=== PATIENT | male | born 1995 | race Caucasian/White ===

== ENCOUNTER 2025-03-25 10:58 | Observation (INO) | payer OTHER, SELFPAY ==
[2025-03-25] VITALS (9 sets, daily range): BP systolic 90–118; BP diastolic 56–77; PULSE 81–109; RESP 16–20; TEMP 36.5–36.7; O2SAT 97–100; BMI 26.9
--- NOTE | ~2025-03-25 | CT_ITS ---
CLINICAL INDICATION: Upper abdominal pain and bloody stool COMPARISON: . TECHNIQUE: Multiple contiguous axial images of the abdomen and pelvis were performed following the ad ministration of with 100 mL Omnipaque-350 intravenous contrast The dose-length product (DLP) was 460.02 mGy-cm. Automated exposure control and iterative reconstruction technique were employed. FINDINGS/OBSERVATIONS: Visualized lower thorax: The bilateral lung bases are clear. The heart is of normal size, without pericardial effusion. Liver: The liver demonstrates homogeneous enhancement and is not enlarged. Gallbladder and biliary system: The gallbladder is only minimally distended, and otherwise unremarkable. Pancreas: The pancreas enhances homogeneously without ductal dilatation. Spleen: The spleen enhances homogeneously and is not enlarged. Kidneys: 7 mm nonobstructing stone within the interpolar region of the right kidney The remainder of the bilateral kidneys otherwise enhance symmetrically without hydronephrosis or kailyn tional renal calculi. Adrenal glands: Unremarkable. Gastrointestinal tract: Rectosigmoid diverticulosis without surrounding inflammatory change. Fecal stasis within the colon. Appendix: The air-filled appendix is of normal caliber (axial series, images 78 through 106). Vasculature: Unremarkable. Lymph nodes: No pathologically enlarged or morphologically suspicious lymph nodes within the retroperitoneum or at the root of the mesentery. Pelvic structures: The bladder is only minimally distended, and otherwise unremarkable. The prostate gland is within the upper limits of normal for size for a patient of this age. Body wall and musculoskeletal: No significant degenerative disease within the lower thoracic or lumbosacral spine. IMPRESSION: 7 mm nonobstructing right renal stone. Rectosigmoid diverticulosis without surrounding inflammatory change. Reviewed, dictated and finalized at location A.
--- OUTSIDE RECORDS SUMMARY | 2025-03-25 11:00 | XMS_ITS | Clinical Summary ---
Author Organization [facility] Address [address] [place] [address] Care Team Providers Care Blocking Machine Operator Name Role Phone Toni Francisco MD Primary Care Provide r Allergies No known active allergies Medications No known medications Medical History Medical History Date Comments Adhd Migraines Social History Tobacco Use Types Packs/Day Years Used Date Smoking Tobacco: Some Days Cigarettes 0.5 2 Tobacco Cessation:Ready to Q uit: Not Asked; Counseling Given: Not Answered Personal Safety Answer Date Recorded Have you ever been in or are you currently in a harmful physical or emotional relationship or is someone making you feel afraid or unsafe? Denies 04/24/2024 Sex and Gender Information Value Date Recorded Sex Assigned at Not on file Legal Sex Male 4:12 PM CDT Gender Identity Not on file Sexual Orientation Not on file Obstetrics History Last Filed Vital Signs Vital Sign Reading Time Taken Comments Blood Pressure 123/85 04/24/2024 7:15 PM CDT Pulse 93 04/24/2024 7:15 PM CDT Temperature 36.9 C (98.5 F) 04/24/2024 4:17 PM CDT Respiratory Rate 26 04/24/2024 7:15 PM CDT Oxygen Saturation 97% 04/24/2024 7:15 PM CDT Inhaled Oxygen Concentration - - Weight 80.3 kg (177 lb) 04/24/2024 4:17 PM CDT Height 177.8 cm (5' 10) 04/24/2024 4:17 PM CDT Body Mass Index 25.4 04/24/2024 4:17 PM CDT Plan of Treatment Health Maintenance Due Date Last Done Comments Depression Screening 1995 Hepatitis C Screening 1995 Hepatitis B Screening 2013 Regular Well Visit/Exam 18-64 2013 Varicella Vaccines (1 of 2 - 13+ 2-dose series) 07/15/2013 Pneumococcal vaccine <65 (2 of 2 - PCV) 02/08/2015 02/08/2014 DTaP/Tdap/Td Vaccine (2 - Td or Tdap) 02/18/2023 02/18/2013 Influenza Vaccine (Season Ended) 2025 08/17/2017, 07/03/2016, 06/27/2015, Additional history exists HPV Vaccines Aged Out No longer eligi ble based on patient's age to complete this topic Insurance [facility] Care Teams Blocking Machine Operator Relationship Specialty Start Date End Date Toni Francisco MD [address] [place] [address] PCP - General Emergency Medicine 04/24/24
--- OUTSIDE RECORDS SUMMARY | 2025-03-25 11:00 | XMS_ITS | Referral Summary ---
Author Organization [facility] Address [address] [place] [address] Care Team Providers Care At Risk Specialist Name Role Phone Toni Francisco MD Primary Care Provide r Allergies No known active allergies Medications No known medications Social History Tobacco Use Types Packs/Day Years [...] on file Sexual Orientation Not on file Last Filed Vital Signs Vital Sign Reading [...] 04/24/2024 4:17 PM CDT Plan of Treatment Not on file Insurance [employer] Care Teams At Risk Specialist Relationship Specialty Start Date End Date Toni Francisco MD [address] [place] [address] PCP - General Emergency Medicine 04/24/24
--- OUTSIDE RECORDS SUMMARY | 2025-03-25 11:00 | XMS_ITS | Continuity of Care Document ---
Author Name [facility] Organization [facility] Care Team Providers Care Surveillance Inspector Name Role Phone [facility] Unavailable Unavailable Problems Combined list of problems from Department of Defense and Veterans Affairs facilities. It does not include entries that were removed or entered in error. Problem Status Onset Date Problem Type Date of Resolution Comments Source Attention deficit hyperactivity disorder Active Condition [facility] Depression Active Condition [facility] Diagnosis: ICD-10-CM F43.12 Post-traumatic stress disorder, chronic Active Diagnosis [facility] Diagnosis: ICD-10-CM F32.A Depression, unspecified Active Diagnosis [facility] Results Combined list of recent chemistry, hematology and other laboratory results from Department of [facility] and Veterans Affairs, ranging from 15 months to all on record, depending upon the facility. Order Name Results Value Reference Range Date Interpretation Specimen Comments Source LIPID PANEL (STL) CHOLESTERO L [MASS/VOLU ME] IN SERUM OR PLASMA 208 mg/dL 0 - 200 01/26 H Specimen Type: PLASMA Comment: No hemolysis noted. Ordering Provider: JEANNA PADGETT Report Released Date/Time: January 26, 2025 08:49 AM Reporting Lab: [facility] [address] [place] [phone] Performing Lab: [address] [address] [facility] LIPID PANEL (STL) TRIGLYCERI DE [MASS/VOLU ME] IN SERUM OR PLASMA 126 mg/dL 0 - 150 01/26 Specimen Type: PLASMA Comment: No hemolysis noted. Ordering Provider: JEANNA PADGETT Report Released Date/Time: January 26, 2025 08:49 AM Reporting Lab: [address] [phone] Performing Lab: [address] [address] [facility] LIPID PANEL (STL) CHOLESTERO L IN LDL [MASS/VOLU ME] IN SERUM OR PLASMA BY ALEN Cartwright 131 mg/dL 01/26 Specimen Type: PLASMA Comment: No hemolysis noted. Ordering Provider: JEANNA PADGETT Report Released Date/Time: January 26, 2025 08:49 AM Reporting Lab: [place] [address] Performing Lab: [address] LIPID PANEL (STL) CHOLESTERO L IN HDL [MASS/VOLU ME] IN SERUM OR PLASMA 52 mg/dL 40 01/26 Specimen Type: PLASMA Comment: No hemolysis noted. Ordering Provider: JEANNA PADGETT Report Released Date/Time: January 26, 2025 08:49 AM Reporting Lab: [place] [phone] Performing Lab: [address] PROST. SPECIFIC AG.(PB-S TL) PROSTATE SPECIFIC AG [MASS/VOLU ME] IN SERUM OR PLASMA 1.148 ng/mL 0 - 4 01/26 Specimen Type: SERUM Comment: The listed sex of this patient may not be a typical indication for this test. Therefore, reference ranges or interpretiv e criteria listed may not be valid. Clinical correlation suggested. Ordering Provider: JEANNA PADGETT Report Released Date/Time: January 26, 2025 08:49 AM Reporting Lab: [place] [phone] Performing Lab: [address] TSH W/ REFLEX FT4 (STL) THYROTROPI N [UNITS/VOL UME] IN SERUM OR PLASMA 0.381 u[IU]/mL 0.47 - 5 01/26 L Specimen Type: PLASMA No comment entered. Ordering Provider: JEANNA PADGETT Report Released Date/Time: January 26, 2025 08:49 AM Reporting Lab: [facility] [address] [facility] [address] Performing Lab: [facility] [address] [place] [phone] [place] [address] TSH W/ REFLEX FT4 (STL) FREE T4(REFLEX) 1.05 ng/mL 0.7 - 1.48 01/26 Specimen Type: PLASMA No comment entered. Ordering Provider: JEANNA PADGETT Report Released Date/Time: January 26, 2025 08:49 AM Reporting Lab: [facility] [address] [place] [phone] Performing Lab: [address] [phone] [place] [address] COMPREHE NSIVE METABOLI C PANEL CREATININE [MASS/VOLU ME] IN SERUM OR PLASMA 0.74 mg/dL 0.7 - 1.3 01/26 Specimen Type: PLASMA Comment: No hemolysis noted. Ordering Provider: JEANNA PADGETT Report Released Date/Time: January 26, 2025 08:49 AM Reporting Lab: [address] [address] Performing Lab: [address] [phone] [place] [address] COMPREHE NSIVE METABOLI C PANEL UREA NITROGEN [MASS/VOLU ME] IN SERUM OR PLASMA 9.3 mg/dL 9.0 - 25.0 01/26 Specimen Type: PLASMA Comment: No hemolysis noted. Ordering Provider: JEANNA PADGETT Report Released Date/Time: January 26, 2025 08:49 AM Reporting Lab: [address] [address] Performing Lab: [address] [address] [facility] COMPREHE NSIVE METABOLI C PANEL GLUCOSE [MASS/VOLU ME] IN SERUM OR PLASMA 82 mg/dL 72 - 99 01/26 Specimen Type: PLASMA Comment: No hemolysis noted. Ordering Provider: JEANNA PADGETT Report Released Date/Time: January 26, 2025 08:49 AM Reporting Lab: [facility] [address] [facility] [address] Performing Lab: [facility] [address] [facility] [address] [facility] COMPREHE NSIVE METABOLI C PANEL SODIUM [MOLES/VOL UME] IN SERUM OR PLASMA 138 meq/L 136 - 145 01/26 Specimen Type: PLASMA Comment: No hemolysis noted. Ordering Provider: JEANNA PADGETT Report Released Date/Time: January 26, 2025 08:49 AM Reporting Lab: [facility] [address] [facility] [address] Performing Lab: [facility] [address] [facility] [phone] [place] [address] COMPREHE NSIVE METABOLI C PANEL POTASSIUM [MOLES/VOL UME] IN SERUM OR PLASMA 4.2 meq/L 3.5 - 5 01/26 Specimen Type: PLASMA Comment: No hemolysis noted. Ordering Provider: JEANNA PADGETT Report Released Date/Time: January 26, 2025 08:49 AM Reporting Lab: [facility] [address] [facility] [address] Performing Lab: [facility] [address] [facility] [address] [facility] COMPREHE NSIVE METABOLI C PANEL CHLORIDE [MOLES/VOL UME] IN SERUM OR PLASMA 105 meq/L 98 - 107 01/26 Specimen Type: PLASMA Comment: No hemolysis noted. Ordering Provider: JEANNA PADGETT Report Released Date/Time: January 26, 2025 08:49 AM Reporting Lab: [facility] [address] [facility] [address] Performing Lab: [facility] [address] [facility] [address] [facility] COMPREHE NSIVE METABOLI C PANEL CARBON DIOXIDE, TOTAL [MOLES/VOL UME] IN SERUM OR PLASMA 26 meq/L 22 - 31 01/26 Specimen Type: PLASMA Comment: No hemolysis noted. Ordering Provider: JEANNA PADGETT Report Released Date/Time: January 26, 2025 08:49 AM Reporting Lab: [facility] [address] [facility] [address] Performing Lab: [facility] [address] [facility] [address] [facility] COMPREHE NSIVE METABOLI C PANEL CALCIUM [MASS/VOLU ME] IN SERUM OR PLASMA 9.5 mg/dL 8.4 - 10.4 01/26 Specimen Type: PLASMA Comment: No hemolysis noted. Ordering Provider: EJANNA PADGETT Report Released Date/Time: January 26, 2025 08:49 AM Reporting Lab: [address] [address] Performing Lab: [address] [address] [facility] COMPREHE NSIVE METABOLI C PANEL PROTEIN [MASS/VOLU ME] IN SERUM OR PLASMA 7.7 g/dL 6 - 8.6 01/26 Specimen Type: PLASMA Comment: No hemolysis noted. Ordering Provider: JEANNA PADGETT Report Released Date/Time: January 26, 2025 08:49 AM Reporting Lab: [address] [address] Performing Lab: [facility] [address] [facility] [address] [facility] COMPREHE NSIVE METABOLI C PANEL ALBUMIN [MASS/VOLU ME] IN SERUM OR PLASMA 4.6 g/dL 3.4 - 5 01/26 Specimen Type: PLASMA Comment: No hemolysis noted. Ordering Provider: JEANNA PADGETT Report Released Date/Time: January 26, 2025 08:49 AM Reporting Lab: [facility] [address] [facility] [address] Performing Lab: [facility] [address] [facility] [address] [facility] COMPREHE NSIVE METABOLI C PANEL BILIRUBIN. TOTAL [MASS/VOLU ME] IN SERUM OR PLASMA 0.3 mg/dL 0.2 - 1.2 01/26 Specimen Type: PLASMA Comment: No hemolysis noted. Ordering Provider: JEANNA PADGETT Report Released Date/Time: January 26, 2025 08:49 AM Reporting Lab: [facility] [address] [facility] [address] Performing Lab: [facility] [address] [facility] [phone] COMPREHE NSIVE METABOLI C PANEL ALKALINE PHOSPHATAS E [ENZYMATIC ACTIVITY/V OLUME] IN SERUM OR PLASMA 91 U/L 40 - 150 01/26 Specimen Type: PLASMA Comment: No hemolysis noted. Ordering Provider: JEANNA PADGETT Report Released Date/Time: January 26, 2025 08:49 AM Reporting Lab: [facility] [address] [facility] [address] Performing Lab: [facility] [address] [facility] [phone] [place] [address] COMPREHE NSIVE METABOLI C PANEL ASPARTATE AMINOTRANS FERASE [ENZYMATIC ACTIVITY/V OLUME] IN SERUM OR PLASMA 33 U/L 5 - 34 01/26 Specimen Type: PLASMA Comment: No hemolysis noted. Ordering Provider: JEANNA PADGETT Report Released Date/Time: January 26, 2025 08:49 AM Reporting Lab: [facility] [address] [facility] [address] Performing Lab: [facility] [address] [facility] [address] [facility] COMPREHE NSIVE METABOLI C PANEL ALANINE AMINOTRANS FERASE [ENZYMATIC ACTIVITY/V OLUME] IN SERUM OR PLASMA 32 U/L 8 - 40 01/26 Specimen Type: PLASMA Comment: No hemolysis noted. Ordering Provider: JEANNA PADGETT Report Released Date/Time: January 26, 2025 08:49 AM Reporting Lab: [facility] [address] [facility] [address] Performing Lab: [facility] [address] [facility] [phone] [place] [address] COMPREHE NSIVE METABOLI C PANEL GLOMERULAR FILTRATION RATE/1.73 SQ M.PREDICTE D [VOLUME RATE/AREA] IN SERUM, PLASMA OR BLOOD BY CREATININE -BASED FORMULA (CKD-EPI 2020) 125.8 60 01/26 Specimen Type: PLASMA Comment: No hemolysis noted. Ordering Provider: JEANNA PADGETT Report Released Date/Time: January 26, 2025 08:49 AM Reporting Lab: [facility] [address] [place] [address] Performing Lab: [place] [phone] [place] [address] HGA1C HEMOGLOBIN A1C/HEMOGL OBIN.TOTAL IN BLOOD 5.4 4.0 - 6.0 01/26 Specimen Type: BLOOD No comment entered. Ordering Provider: JEANNA PADGETT Report Released Date/Time: January 26, 2025 08:49 AM Reporting Lab: [facility] [address] [place] [phone] Performing Lab: [address] [address] [place] [address] HIV COMBO FOURTH GENERATI ON (STL) HIV 1+2 AB+HIV1 P24 AG [PRESENCE] IN SERUM OR PLASMA BY IMMUNOASSA Y Nonreact lulu 01/26 Specimen Type: SERUM No comment entered. Ordering Provider: JEANNA PADGETT Report Released Date/Time: January 26, 2025 10:00 AM Reporting Lab: [facility] [address] [place] [phone] Performing Lab: [facility] [address] [place] [phone] [facility] HEP C Ab HCV Ab (STL) HEPATITIS C VIRUS AB [PRESENCE] IN SERUM Nonreact lulu 01/26 Specimen Type: SERUM Comment: The listed sex of this patient may not be a typical indication for this test. Therefore, reference ranges or interpretiv e criteria listed may not be valid. Clinical correlation suggested. Ordering Provider: JEANNA PADGETT Report Released Date/Time: January 26, 2025 10:00 AM Reporting Lab: [address] [address] Performing Lab: [address] [address] [facility] CBC LEUKOCYTES [#/VOLUME] IN BLOOD BY AUTOMATED COUNT 8.6 10*3/uL 3.6 - 11.2 01/26 Specimen Type: BLOOD No comment entered. Ordering Provider: JEANNA PADGETT Report Released Date/Time: January 26, 2025 10:01 AM Reporting Lab: [address] [address] Performing Lab: [address] [phone] [place] [address] CBC ERYTHROCYT ES [#/VOLUME] IN BLOOD BY AUTOMATED COUNT 4.67 10*6/uL 4.10 - 5.70 01/26 Specimen Type: BLOOD No comment entered. Ordering Provider: JEANNA PADGETT Report Released Date/Time: January 26, 2025 10:01 AM Reporting Lab: [address] [address] Performing Lab: [address] [phone] [place] [address] CBC HEMOGLOBIN [MASS/VOLU ME] IN BLOOD 13.9 g/dL 13.1 - 16.8 01/26 Specimen Type: BLOOD No comment entered. Ordering Provider: JEANNA PADGETT Report Released Date/Time: January 26, 2025 10:01 AM Reporting Lab: [address] [address] Performing Lab: [address] [phone] [place] [address] CBC HEMATOCRIT [VOLUME FRACTION] OF BLOOD 41.6 38.2 - 48.4 01/26 Specimen Type: BLOOD No comment entered. Ordering Provider: JEANNA PADGETT Report Released Date/Time: January 26, 2025 10:01 AM Reporting Lab: [address] [address] Performing Lab: [address] [phone] [place] [address] CBC MCV [ENTITIC VOLUME] BY AUTOMATED COUNT 89.1 fL 80.0 - 100.0 01/26 Specimen Type: BLOOD No comment entered. Ordering Provider: JEANNA PADGETT Report Released Date/Time: January 26, 2025 10:01 AM Reporting Lab: [place] [phone] Performing Lab: [address] [phone] CBC MCH [ENTITIC MASS] BY AUTOMATED COUNT 29.8 pg 27.0 - 34.0 01/26 Specimen Type: BLOOD No comment entered. Ordering Provider: JEANNA PADGETT Report Released Date/Time: January 26, 2025 10:01 AM Reporting Lab: [address] [address] Performing Lab: [address] [phone] [place] [address] CBC MCHC [MASS/VOLU ME] BY AUTOMATED COUNT 33.4 g/dL 33.0 - 36.0 01/26 Specimen Type: BLOOD No comment entered. Ordering Provider: JEANNA PADGETT Report Released Date/Time: January 26, 2025 10:01 AM Reporting Lab: [address] [address] Performing Lab: [address] [phone] [place] [address] CBC PLATELETS [#/VOLUME] IN BLOOD BY AUTOMATED COUNT 300 10*3/uL 150 - 400 01/26 Specimen Type: BLOOD No comment entered. Ordering Provider: JEANNA PADGETT Report Released Date/Time: January 26, 2025 10:01 AM Reporting Lab: [facility] [address] [facility] [address] Performing Lab: [facility] [address] [place] [phone] [facility] CBC PLATELET MEAN VOLUME [ENTITIC VOLUME] IN BLOOD BY AUTOMATED COUNT 9.7 fL 7.5 - 11.2 01/26 Specimen Type: BLOOD No comment entered. Ordering Provider: JEANNA PADGETT Report Released Date/Time: January 26, 2025 10:01 AM Reporting Lab: [facility] [address] [place] [phone] Performing Lab: [address] [phone] [place] [address] CBC ERYTHROCYT E DISTRIBUTI ON WIDTH [RATIO] BY AUTOMATED COUNT 12.3 11.8 - 15.1 01/26 Specimen Type: BLOOD No comment entered. Ordering Provider: JEANNA PADGETT Report Released Date/Time: January 26, 2025 10:01 AM Reporting Lab: [facility] [address] [place] [phone] Performing Lab: [facility] [address] [place] [phone] [facility] CBC LYMPHOCYTE S/100 LEUKOCYTES IN BLOOD BY AUTOMATED COUNT 23 01/26 Specimen Type: BLOOD No comment entered. Ordering Provider: JEANNA PADGETT Report Released Date/Time: January 26, 2025 10:01 AM Reporting Lab: [facility] [address] [place] [phone] Performing Lab: [facility] [address] [place] [phone] [facility] CBC MONOCYTES/ 100 LEUKOCYTES IN BLOOD BY AUTOMATED COUNT 8 01/26 Specimen Type: BLOOD No comment entered. Ordering Provider: JEANNA PADGETT Report Released Date/Time: January 26, 2025 10:01 AM Reporting Lab: [facility] [address] [facility] [address] Performing Lab: [facility] [address] [facility] [address] [facility] CBC NEUTROPHIL S/100 LEUKOCYTES IN BLOOD BY AUTOMATED COUNT 65 01/26 Specimen Type: BLOOD No comment entered. Ordering Provider: JEANNA PADGETT Report Released Date/Time: January 26, 2025 10:01 AM Reporting Lab: [facility] [address] [facility] [address] Performing Lab: [place] [address] [facility] [address] [facility] CBC EOSINOPHIL S/100 LEUKOCYTES IN BLOOD BY AUTOMATED COUNT 3 01/26 Specimen Type: BLOOD No comment entered. Ordering Provider: JEANNA PADGETT Report Released Date/Time: January 26, 2025 10:01 AM Reporting Lab: [facility] [address] [facility] [address] Performing Lab: [place] [address] [facility] [address] [facility] CBC BASOPHILS/ 100 LEUKOCYTES IN BLOOD BY AUTOMATED COUNT 1 01/26 Specimen Type: BLOOD No comment entered. Ordering Provider: JEANNA PADGETT Report Released Date/Time: January 26, 2025 10:01 AM Reporting Lab: [facility] [address] Performing Lab: [facility] [address] [facility] [address] [facility] CBC LYMPHOCYTE S [#/VOLUME] IN BLOOD BY AUTOMATED COUNT 1.99 10*3/uL 0.77 - 4.50 01/26 Specimen Type: BLOOD No comment entered. Ordering Provider: JEANNA PADGETT Report Released Date/Time: January 26, 2025 10:01 AM Reporting Lab: [facility] [address] [facility] [address] Performing Lab: [facility] [address] [place] [phone] [facility] CBC MONOCYTES [#/VOLUME] IN BLOOD BY AUTOMATED COUNT 0.65 10*3/uL 0.19 - 0.80 01/26 Specimen Type: BLOOD No comment entered. Ordering Provider: JEANNA PADGETT Report Released Date/Time: January 26, 2025 10:01 AM Reporting Lab: [place] [phone] Performing Lab: [place] [phone] CBC NEUTROPHIL S [#/VOLUME] IN BLOOD BY AUTOMATED COUNT 5.58 10*3/uL 2.10 - 8.00 01/26 Specimen Type: BLOOD No comment entered. Ordering Provider: JEANNA PADGETT Report Released Date/Time: January 26, 2025 10:01 AM Reporting Lab: [place] [address] Performing Lab: [place] [phone] CBC EOSINOPHIL S [#/VOLUME] IN BLOOD BY AUTOMATED COUNT 0.26 10*3/uL 0.00 - 0.60 01/26 Specimen Type: BLOOD No comment entered. Ordering Provider: JEANNA PADGETT Report Released Date/Time: January 26, 2025 10:01 AM Reporting Lab: [place] [phone] Performing Lab: [place] [phone] CBC BASOPHILS [#/VOLUME] IN BLOOD BY AUTOMATED COUNT 0.09 10*3/uL 0.00 - 0.20 01/26 Specimen Type: BLOOD No comment entered. Ordering Provider: JEANNA PADGETT Report Released Date/Time: January 26, 2025 10:01 AM Reporting Lab: [place] [phone] Performing Lab: [address] [facility] [address] [facility] Vital Signs Combined list of inpatient and outpatient Vital Signs from Department of Defense and Veterans Affairs, ranging from 12 months to all on record, depending upon the facility. Vital Sign Value Date Comments Source SYSTOLIC BLOOD PRESSURE 125 01/27/20 25 08:58:16 [facility] DIASTOLIC BLOOD PRESSURE 82 025 08:58:16 [facility] PULSE OXIMETRY 100 01/26/2025 08:58:16 [facility] WEIGHT 190 01/26/2025 08:58:16 [facility] BMI 27 kg/m2 01/26/2025 08:58:16 [facility] PAIN 0 01/26/2025 08:58:16 [facility] HEIGHT 70 01/26/2025 08:58:16 [facility] TEMPERATURE 98.1 01/26/2025 08:58:16 [facility] PULSE 86 01/26/2025 08:58:16 [facility] RESPIRATION 18 01/26/2025 08:58:16 [facility] Encounters Combined list of: 1) Encounters from Department of Veterans Affairs facilities going backup to the last 18 months, not all [place] inpatient encounters are included; 2) Encounters from the Department of Defense facilities going backup to 280 months. Location Location Details Encounter Type Encounter Number Reason For Visit Attending Provider ADM Date DC Date Status Disposition Source [facility] Outpatient Encounter [id number] 01/03 [facility] OFFICE O/P NEW MOD 45 MIN [id number] Diagnos is: ICD-10- CM F32.A Depress ion, unspeci fiKASANDRA Elise SALENA N 01/26 [facility] PSYTX W PT 30 MINUTES [id number] Diagnos is: ICD-10- CM F43.12 Post-tr aumatic stress disorde r, chronic WIEGMAN,CL HARPREET E 01/26 [facility] Social History Combined list of available smoking, tobacco, and other social history from Department of Defense and Veterans Affairs facilities. Social History Type Response Date Comment Sourc e Tobacco smoking status NHIS VA-TOBACCO USE SOME DAYS CIGARETTES 01/26/2025 [facility] History of tobacco use VA-TOBACCO USE EVERY DAY OTHER TYPE 01/26/2025 [facility] Plan of Care List of future care activities from Department of Veterans Affairs facilities. Additional future care activities may be listed in the Assessment and Plan section. Date/Time Care Activity Care Activity Detail Facili ty 06/26/2025 AMBULATORY - PSYCHIATRY AMBULATORY - PSYC HIATRY [facility]
--- OUTSIDE RECORDS SUMMARY | 2025-03-25 11:00 | XMS_ITS | Encounter Summary ---
Author Name [facility] Address [address] [place] [address] Care Team Providers Care Utility Hand Name Role Phone MABEL PADGETT Primary Care Provider Unavailabl e Selected Encounter This section includes the information on record at [place] for the Encounter. Date/Time Encounter Type Encounter Description Reason Provider Source January 26, 2025 09:00 AM OFFICE O/P NEW MOD 45 MIN PRIMARY CARE/MEDICINE ICD-10-CM F32.A Depression, unspecified MBAEL PADGETT Mario Encounter Template Text not used by [place] Assessments - Encounter Diagnoses This section includes the primary and secondary diagnoses documented for the Encounter. Date/Time Primary/Secondary Diagnosis Diagnosis Name Provider Source January 26, 2025 09:58 AM PRIMARY Depression, unspecified MABEL PADGETT [facility] January 26, 2025 09:58 AM SECONDARY Attention-deficit hyperactivity disorder, unspecified type MABEL PADGETT [facility] Plan of Treatment: Future Appointments (+ 6 months) and Future Tests (+/- 45 days) The Plan of Treatment section includes future care activities for the patient from all [place] treatmentfacilities. This section includes future appointments and future orders which are active, pending or scheduled. Future Appointments This section includes appointments that were scheduled to occur 6 months from the date of the Encounter, up to a maximum of 20 appointments. The data comes from all [place] treatment facilities. Appointment Date/Time Appointment Type Appointme nt Facility Name Jun 26, 2025 03:00 PM AMBULATORY - PSYCHIATRY [facility] Active, Pending, and Scheduled Orders This section includes a listing of several types of active, pending, and scheduled orders, including clinic medications orders, diagnostic test orders, procedure orders and consult orders; where the start date of the order is 45 days before the date of the Encounter or 45 days after the date of theEncounter. The data comes from all [place] treatment facilities. Test Date/Time Test Type Test Details Facility Name January 26, 2025 12:00 AM Laboratory - Chemi stry Order URINALYSIS (STL-PB) URINE [facility] January 26, 2025 12:00 AM Laboratory - Chemi stry Order MICRAL/CREAT PROFILE (STL) URINE [facility] January 26, 2025 01:52 PM Consult Order MENTAL [facility] BHIP OUTPT RAKESH Cons Octave Board Racker's Choice [facility] Lab Results: +/- 30 days of the encounter This section includes the Chemistry and Hematology Lab Results on record with [place] for the patient. Radiology Reports and Pathology Reports are provided separately, in subsequent sections. Lab Results This section contains the Chemistry/Hematology Results that were resulted 30 days before or 30 daysafter the date of the Encounter. Date/Time Source Result Type Result - Unit Interpretation Reference Range Specimen Type Comment January 26, 2025 10:05 AM [facility] LIPID PANEL (STL) PLASMA Specimen Type: PLASMA Comment: No hemolysis noted. Ordering Provider: MABEL PADGETT Report Released Date/Time: January 26, 2025 08:49 AM Reporting Lab: [facility] [address] [place] [phone] Performing Lab: [address] [address] CHOLESTEROL 208 mg/dL H 0-200 TRIGLYCERIDE 126 mg/dL 0-150 CALCULATED LDL 131 mg/dL HDL(New) 52 mg/dL >40 January 26, 2025 10:05 AM [facility] PROST. SPECIFIC AG.(PB-STL) SERUM Specimen Ty pe: SERUM Comment: The listed sex of this patient may not be a typical indication for this test. Therefore, reference ranges or interpretive criteria listed may not be valid. Clinical correlation suggested. Ordering Provider: MABEL PADGETT Report Released Date/Time: January 26, 2025 08:49 AM Reporting Lab: [place] [id number] [facility] [phone] Performing Lab: [place] [phone] PROST. SPECIFIC AG.(PB-STL) 1.148 ng/mL 0-4 January 26, 2025 10:05 AM [facility] TSH W/ REFLEX FT4 (STL) PLASMA Specimen Type: PLASMA No comment entered. Ordering Provider: MABEL PADGETT Report Released Date/Time: January 26, 2025 08:49 AM Reporting Lab: [place] [id number] [facility] [phone] Performing Lab: [place] [id number] [facility] [address] TSH 0.381 u[IU]/mL L 0.47-5 FREE T4(REFLEX) 1.05 ng/mL 0.7-1.48 January 26, 2025 10:05 AM [facility] COMPREHENSIVE METABOLIC PANEL PLASMA Specimen Type: PLASMA Comment: No hemolysis noted. Ordering Provider: MABEL PADGETT Report Released Date/Time: January 26, 2025 08:49 AM Reporting Lab: [place] [id number] [facility] [phone] Performing Lab: [place] [address] [facility] [phone] CREATININE 0.74 mg/dL 0.7-1.3 UREA NITROGEN 9.3 mg/dL 9.0-25.0 GLUCOSE 82 mg/dL 72-99 SODIUM 138 meq/L 136-145 POTASSIUM 4.2 meq/L 3.5-5 CHLORIDE 105 meq/L 98-107 CARBON DIOXIDE 26 meq/L 22-31 CALCIUM 9.5 mg/dL 8.4-10.4 PROTEIN 7.7 g/dL 6-8.6 ALBUMIN 4.6 g/dL 3.4-5 TOTAL BILIRUBIN 0.3 mg/dL 0.2-1.2 ALKALINE PHOSPHATASE 91 U/L 40-150 AST/SGOT 33 U/L 5-34 ALT/SGPT 32 U/L 8-40 EGFR (CKD-EPI 2020) 125.8 >60 January 26, 2025 10:05 AM [facility] HGA1C BLOOD Specimen Type: BLOOD No comment entered. Ordering Provider: MABEL PADGETT Report Released Date/Time: January 26, 2025 08:49 AM Reporting Lab: [facility] [address] [facility] [phone] Performing Lab: [facility] [address] [facility] [phone] HGA1C 5.4 4.0-6.0 January 26, 2025 10:05 AM [facility] HIV COMBO FOURTH GENERATION (STL) SERUM Speci men Type: SERUM No comment entered. Ordering Provider: MABEL PADGETT Report Released Date/Time: January 26, 2025 10:00 AM Reporting Lab: [facility] [address] [facility] [phone] Performing Lab: [place] [address] [facility] [phone] HIV COMBO FOURTH GENERATION (STL) Nonreactive Nonreactive January 26, 2025 10:05 AM [facility] HEP C Ab HCV Ab (STL) SERUM Specimen Type: SE RUM Comment: The listed sex of this patient may not be a typical indication for this test. Therefore, reference ranges or interpretive criteria listed may not be valid. Clinical correlation suggested. Ordering Provider: MABEL PADGETT Report Released Date/Time: January 26, 2025 10:00 AM Reporting Lab: [facility] [address] [place] [phone] Performing Lab: [address] [phone] HEP C Ab HCV Ab (L) Nonreactive Nonrea ctive January 26, 2025 10:05 AM [facility] CBC BLOOD Specimen Type: BLOOD No comment entered. Ordering Provider: MABEL PADGETT Report Released Date/Time: January 26, 2025 10:01 AM Reporting Lab: [place] [address] [facility] [phone] Performing Lab: [place] [address] [facility] [phone] WBC 8.6 10*3/uL 3.6-11.2 RBC 4.67 10*6/uL 4.10-5.70 HGB 13.9 g/dL 13.1-16.8 HCT 41.6 38.2-48.4 MCV 89.1 fL 80.0-100.0 MCH 29.8 pg 27.0-34.0 MCHC 33.4 g/dL 33.0-36.0 PLT 300 10*3/uL 150-400 MPV 9.7 fL 7.5-11.2 RDW 12.3 11.8-15.1 LYMPHOCYTES, AUTO % 23 MONOCYTES, AUTO % 8 NEUTROPHILS, AUTO % 65 EOSINOPHILS, AUTO % 3 BASOPHILS, AUTO % 1 LYMPHOCYTES, ABSOLUTE 1.99 10*3/uL 0.77- 4.50 MONOCYTES, ABSOLUTE 0.65 10*3/uL 0.19-0. 80 NEUTROPHILS, ABSOLUTE 5.58 10*3/uL 2.10- 8.00 EOSINOPHILS, ABSOLUTE 0.26 10*3/uL 0.00- 0.60 BASOPHILS, ABSOLUTE 0.09 10*3/uL 0.00-0. 20 Vital Signs: All taken on the encounter date This section contains inpatient and outpatient Vital Signs collected on the date of the Encounter. Date/Time Temperature Pulse Blood Pressure Respiratory Rate SP02 Pain Height Weight Body Mass Index Source January 26, 2025 08:58 AM 98.1 86 125/82 18 100 0 70 190 27 [facility] Social History: Smoking Status (Most current) and Tobacco Use (All prior to encounter date) This section includes the most current, and the historical, smoking and tobacco- related health factors from the [place] facility where the Encounter took place. Current Smoking Status This section includes the most current smoking, or tobacco-related health factor, from the [place] facility where the Encounter took place. Date/Time Current Smoking Status Comment Pranav ity January 26, 2025 09:00 AM VA-TOBACCO USE LIVIA E DAYS CIGARETTES [facility] Tobacco Use History This section includes a history of the smoking, or tobacco-related health factors, that were collected on or before the date of the Encounter. The data comes from the [place] facility where the Encounter took place. 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 Date/Time Encounter Note(s) Provider Source January 27, 2025 10:01 AM PHYSICIAN LETTERS: LOCAL TITLE: TEST RESULT GENERAL LETTER STL STANDARD TITLE: PHYSICIAN LETTERS DATE OF NOTE: JANUARY 27, 2025@10:01 ENTRY DATE: JANUARY 27, 2025@10:01:36 AUTHOR: MABEL PADGETT EXP COSIGNER: URGENCY: STATUS: COMPLETED [facility] [address] [place] [address] JANUARY 27, 2025 RODRÍGUEZ BARKLEY [address] [place], [place] [address] Dear Rodríguez Barkley, I would like to update you on your recent test results. LIPID PROFILE - High cholesterol and triglycerides (lipids) are risk factors for heart disease. Your cholesterol should fall between 140 and 200, and your triglycerides levels should be less than or equal to 150. HDL is the good cholesterol and should ideally be greater than 40. LDL is the bad cholesterol and optimal levels should be less than 100 (near optimal is between 100 and 129). TRIGLYCERIDE 126 mg/dL 01/26/2025 10:05 CHOLESTEROL 208 H mg/dL 01/26/2025 10:05 HDL(New) 52 mg/dL 01/26/2025 10:05 CALCULATED LDL 131 mg/dL 01/26/2025 10:05 No DIRECT LDL EO data found These results are abnormal. your cholesterol levels are borderline high. start low fat diet and regular daily exercise to loose weight. Please call residential interior designer for diet advice at [phone] Please get labs a 1 day or few days before your next appointment HEMOGLOBIN A1C - Gives us information about your diabetes (sugar or glucose) control over the past 3 months. Your target is to keep your A1C below 6 %. HGA1C 5.4 % 01/26/2025 10:05 These readings are within normal limits. CBC - A complete blood count (CBC) gives important information about the kinds and numbers of cells in the blood, especially red blood cells, white blood cells, and platelets. HGB 13.9 g/dL 01/26/2025 10:05 HEMATOCRIT 41.6 % (01/26/25 10:05) PLT 300 10*3/uL 01/26/2025 10:05 WHITE BLOOD COUNT 8.6 10*3/uL (01/26/25 10:05) These readings are within normal limits. CHEM 7 - This is important information about the current status of your kidneys, liver, and electrolyte and acid/base balance as well as of your blood sugar and blood proteins. SODIUM 138 mEq/L 01/26/2025 10:05 POTASSIUM 4.2 mEq/L 01/26/2025 10:05 CHLORIDE 105 mEq/L 01/26/2025 10:05 UREA NITROGEN 9.3 mg/dL 01/26/2025 10:05 CREATININE 0.74 mg/dL 01/26/2025 10:05 CALCIUM 9.5 mg/dL 01/26/2025 10:05 CARBON DIOXIDE 26 mEq/L 01/26/2025 10:05 GLUCOSE 82 mg/dL 01/26/2025 10:05 EGFR (CKD-EPI 2020) 125.8 01/26/2025 10:05 These readings are within normal limits. Hep C - This is important information about your exposure to infectious disease. Infection with hepatitis C can lead to liver damage. Hepatitis C has effective treatment. [facility] Hep C tests in last five years. HEP C Ab HCV Ab ([facility]) Nonreactive S/CO (01/26/25 10:05) The reading for Hep C was negative . LIVER FUNCTION PANEL - These are tests for liver function: PROTEIN 7.7 g/dL 01/26/2025 10:05 ALBUMIN 4.6 g/dL 01/26/2025 10:05 TOTAL BILIRUBIN 0.3 mg/dL 01/26/2025 10:05 ALKALINE PHOSPHATASE 91 U/L 01/26/2025 10:05 AST/SGOT 33 U/L 01/26/2025 10:05 ALT/SGPT 32 U/L 01/26/2025 10:05 These readings are within normal limits. TSH - Thyroid-stimulating hormone (also known as TSH or thyrotropin) is a peptide hormone synthesized and secreted by thyrotrope cells in the anterior pituitary gland, which regulates the endocrine function of the thyroid gland. TSH TSH 0.381 L uIU/mL 01/26/2025 10:05 These readings are within normal limits. Thyroid hormone levels are normal. HIV - Human immunodeficiency virus is a condition in humans in which the immune system begins to fail, leading to life-threatening opportunistic infections. HIV FOURTH GENERATION: Collection DT Specimen Test Name Result Units Ref Range 01/26/2025 10:05 SERUM HIV Combo Nonreactive S/CO Ref: Nonreactive These readings are within normal limits. PLAN Please continue your treatment as above and as we discussed during your visit. If you have any questions please call your case manager specialist. I look forward to seeing you at your next clinic appointment. Thank you for choosing the [facility] for your healthcare. FUTURE APPOINTMENTS: 08/28/2025 11:00 [facility] PACT B4 PCP Sincerely, Mabel Padgett MD. Staff Kurtis. RODRÍGUEZ BARKLEY SUNITA N [facility] January 26, 2025 09:11 AM PRIMARY CARE INITIAL EVALUATION NOTE: LOCAL TITLE: PRIMARY CARE PROVIDER NEW VISIT [facility] STANDARD TITLE: PRIMARY CARE INITIAL EVALUATION NOTE DATE OF NOTE: JANUARY 26, 2025@09:11 ENTRY DATE: JANUARY 26, 2025@09:11:30 AUTHOR: MABEL PADGETT EXP COSIGNER: URGENCY: STATUS: COMPLETED PRIMARY CARE PROVIDER NEW VISIT [facility] Has ADDENDA Patient is 29 and RACE UNKNOWN Self Identified Gender - NONE FOUND Reason for visit:New Patient Chief Complaint: tawnya is here for his new patient appointment History of Present Illness: establishment of care. Tawnya was seeing therapist and private pcp Dr Chaudhry and receiving meds for ADHD. . Dextro amphetamine/Amphetamine 20 mg daily and Amphetamine Resin complex capsule, SA 20 mg daily Problem List: - ADHD - Depression: Family History: no cancer, cad, DM, stroke Social History: uses e cig daily/ smokes a couple cig a week / never really had alcohol / no substance use. 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 NO BRANCH(ES) OF SERVICE: [employer] SPECIFIC YEARS OF SERVICE: LOCATION OF SERVICE: ENVIRONMENTAL EXPOSURE: Medication Review: The essential med list for review which includes the patient's active VA prescriptions and if applicable, remote VA prescriptions, non-VA prescriptions, and discontinued VA prescriptions within the last 90 days and known allergies including local and remote allergies have been reviewed. Allergies:Patient has answered NKA Active and Recently Outpatient Medications (excluding Supplies): No Medications Found Review of Systems: except as in HPI above GENERAL: no fever, no weight loss HEENT: denies vertigo, no visual problems PULMONARY: denies SOB CARDIAC: denies chest pain, denies palpitations GI: no change in appetite, no nausea, no vomiting, no abd pain, no diarrhea : no nocturia, no polyuria, no dysuria, no hematuria EXT: denies pedal edema, no arthritis Physical Exam VITALS (most recent, as listed in the electronic record): B/P: 125/82 (01/26/2025 08:58) Pulse: 86 (01/26/2025 08:58) Temperature: 98.1 F [36.7 C] (01/26/2025 08:58) Weight: 190 lb [86.18 kg] (01/26/2025 08:58) Height: 70 in [177.8 cm] (01/26/2025 08:58) BMI: 27.3 Pain: 0 (01/26/2025 08:58) (0-10 scale) Please also see Exam in Assessment/ Plan note. GENERAL:cooperative,nad. HEENT:PERRL, EOMI,oropharynx moist. NECK:supple, no JVD, no lymphadenopathy, thyromegaly, no carotid bruit. CVS:RRR, no murmurs. LUNGS:CTA. ABD:soft, NT, BS + BACK:no CVA tenderness. EXT:no edema PPP. NEURO:A+O X 3 Data Review: No HEMOGLOBIN A1C EO data found Lipid Panel: No LIPID PANEL EO data found CMP: No COMPREHENSIVE METABOLIC PANEL EO data found CBC: No CBC EO data found PSA: No PSA EO data found TSH: No TSH (1YR) EO data found UA: No URINALYSIS EO data found Vitamin D: No VITAMIN D EO data found Micral/Creat Profile: No data available Result: Follow-up Action: Assessment/Plan: Service Connected: 100% - ADHD: tawnya is willing to see [place] psychologist.Stacyt was seeing therapist and private pcp Dr Chaudhry and receiving meds for ADHD. . Dextro amphetamine/Amphetamine 20 mg daily and Amphetamine Resin complex capsule, SA 20 mg daily. will get records from PCP. alerting rayray Abbott tawnya spoke to Dr Wilburn and has been refereed to . - Depression: vet states he has SI in the past week. He did not have plans to carry out. spoke to psychologist Dr Wilburn and he has been referred to . 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 Weight: 190 lb [86.18 kg] (01/26/2025 , BMI: 27.3 RTC: 7 month CLINICAL REMINDERS COMPLETED Tobacco Use Follow-Up - AT,DE,M,N,P,PH,PS,RT,S: Patient was advised to stop smoking and/or using other tobacco products. Advised patient that a combination of behavioral counseling and FDA-approved cessation medications is the most effective way to ensure their success in stopping to smoke and/or using other tobacco products. The patient was not interested in additional information about behavioral counseling and other support strategies discussed. Informed patient that medications can help with cravings and withdrawal symptoms, and they greatly increase the chances of successfully stopping your tobacco use. The patient was not interested in a prescription for tobacco cessation medications. Screen for Embedded Fragments - L,N,P,S,U: SCREEN FOR EMBEDDED FRAGMENTS The patient reports no embedded fragments. Follow-Up Pos PTSD/Depression - M,P,PH,PS,R,S,T: I have reviewed the results of the Mental Health screens and have evaluated the patient. Based on the evaluation, the following disposition plan will be implemented: Patient to be evaluated by Mental Health Stat/Emergent Mental Health Evaluation needed. Comment: had SI within 1 week. TBI Screening - L,N,P,PH,S: The [place] was not deployed in support of post-05/31 operations. HIV Screening (Routine): Patient has given verbal consent for HIV antibody testing, and written educational materials have been provided. An order for an HIV Antibody test has been entered - see orders tab. Hepatitis C Testing - L,N,P,PH: Patient has given verbal consent for HCV antibody testing. An HCV lab test has been ordered - see orders tab. Prior Approval/Non-formulary Drug: MEDICATION USE EVALUATION Time spent 50 min. /caridad/ Mabel Padgett MD. [facility] Signed: 01/26/2025 10:03 01/27/2025 ADDENDUM STATUS: COMPLETED hgaic, cmp, cbc, free T4 is normal on 01/26/25 - hiv and HCV is non reactive on 01/26/25 mailed results *- Hyperlipidemia: your cholesterol levels are borderline high. start low fat diet and regular daily exercise to loose weight. Please call residential interior designer for diet advice at [phone] Please get labs a 1 day or few days before your next appointment /caridad/ Mabel Padgett MD. Staff Physcian. Signed: 01/27/2025 10:01 MABEL PADGETT [facility] January 26, 2025 09:00 AM NURSING NOTE: LOCAL TITLE: V15 PACT FACE TO FACE NOTE STL STANDARD TITLE: NURSING NOTE DATE OF NOTE: JANUARY 26, 2025@09:00 ENTRY DATE: JANUARY 26, 2025@09:00:17 AUTHOR: ORALIA ROSARIO EXP COSIGNER: URGENCY: STATUS: COMPLETED Provider Visit: Patient Identifiers : Full Name Date of Reason for visit: New Patient Do you have a history of any of the following? (check all that apply): Other:n/a Surgeries (type(s) and date(s)): n/a Have you been seen by a physician, [place] or private, in the last year? Yes Name and contact information for provider: Jac Francisco Have you been hospitalized or seen in an ER in the last year? Yes What hospital(s) or ERs and approximate date(s)? [facility] 04/2024 Records request sent: Have you had a colonoscopy previously? No Have you had a PAP smear previously? N/A Have you had a Mammogram previously? No Mode of Arrival: Ambulatory Allergy Review: ALLERGIES/ADVERSE REACTIONS - NONE FOUND Allergy list reviewed and remains current. Recent Vital Signs: Temperature: 98.1 F [36.7 C] (01/26/2025 08:58) Pulse: 86 (01/26/2025 08:58) Respiration: 18 (01/26/2025 08:58) B/P: 125/82 (01/26/2025 08:58) Pain: 0 (01/26/2025 08:58) Wt: 190 lb [86.18 kg] (01/26/2025 08:58) Ht: 70 in [177.8 cm] (01/26/2025 08:58) BMI: 27.3 POX: 100% (01/26/2025 08:58) PERSONAL HEALTH INVENTORY Notes: No data available for PHI note titles PERSONAL HEALTH INVENTORY - MAP: No data available for PHI MAP What matters most to you in your life right now? -- [place] Response: spouse WHOLE HEALTH SHARED GOALS: PERSONAL HEALTH PLAN - SHARED GOALS: No data available for: Php Shared Goals SHARED GOALS none Would you like to discuss any personal problem, family problem, alcohol use, drug use, or a mental or emotional illness? Yes is not in active care and requests to speak to [facility] Provider, warm hand-off initiated nereyda Marcelino (GORDON), please select appointment type: Face to face: Yes- Done Contact provided Primary Care phone number and encouraged to call if any questions or concerns. Review that after hours nurse line [phone] and emergency room are available 12/04 for patient use. Contact verbalized good understanding. MST Screening - V: Patient denies experiencing sexual trauma (MST). Suicide Screen - V: C-SSRS Screening [place] Suicide Severity Rating Scale (C-SSRS) screener 1. Over the past month, have you wished you were or wished you could go to sleep and not wake up? Yes 2. Over the past month, have you had any actual thoughts of killing yourself? Yes 3. Over the past month, have you been thinking about how you might do this? No 4. Over the past month, have you had these thoughts and had some intention of acting on them? No 5. Over the past month, have you started to work out or worked out the details of how to kill yourself? No 6. If yes, at any time in the past month did you intend to carry out this plan? Response not required due to responses to other questions. 7. In your lifetime, have you ever done anything, started to do anything, or prepared to do anything to end your life (for example, collected pills, obtained a gun, gave away valuables, went to the roof but didn't jump)? No 8. If YES, was this within the past 3 months? Response not required due to responses to other questions. Sexual Orientation - CP,L,N,P,PH,PS,S,U: The patient thinks of their sexual orientation as: Straight or Heterosexual Depression Screening - V: Perform PHQ-2 A PHQ-2 screen was performed. The score was 5 which is a positive screen for depression. Over the past two weeks, how often have you been bothered by the following problems? 1. Little interest or pleasure in doing things More than half the days 2. Feeling down, depressed, or hopeless Nearly every day Licensed Independent Provider notified of positive screen and need for follow-up. Name of provider notified: [facility] Homelessness/Food Insecurity Screen - DI,L,N,P,PH,PS,S,U: In the past 2 months, have you been living in stable housing that you own, rent, or stay in as part of a household? Yes - Living in stable housing. Are you worried or concerned that in the next 2 months you may NOT have stable housing that you own, rent, or stay in as part of a household? No - Not worried about housing near future The [place] reports the following: Within the past 12 months, you worried whether your food would run out before you got money to buy more. Never true Within the past 12 months, the food you bought just didn't last and you didn't have money to get more. Never true PTSD Screening - V: PC-PTSD-5 A PTSD screening test (PC-PTSD-5) was negative (score=2). IN THE PAST MONTH, have you ever had any experience that was so frightening, horrible or traumatic. For example: A serious accident or fire a physical or sexual assault or abuse An earthquake or flood A war Seeing someone be killed or seriously injured Having a loved one through homicide or suicide 1. Have you ever experienced this kind of event? YES 2. Had nightmares about the event(s) or thought about the event(s) when you did not want to? NO 3. Tried hard not to think about the event(s) or went out of your way to avoid situations that reminded you of the event(s)? NO 4. Been constantly on guard, watchful, or easily startled? YES 5. [place] numb or detached from people, activities, or your surroundings? YES 6. [place] guilty or unable to stop blaming yourself or others for the event(s) or any problems the event(s) may have caused? NO Tobacco Use Screening - AT,DE,L,M,N,P,PH,PS,RT,S,U: The patient smokes cigarettes some days. The patient uses other type(s) of tobacco every day. Other Tobacco Type(s) used: Electronic Nicotine Delivery System (ENDS) (e.g., e-cigarettes/vape pens) Learning Assessment: - * This patient's learning ABILITIES, BARRIERS to learning, CULTURAL and SIKHISM beliefs, and learning PREFERENCES were assessed. Following are findings of note: Patient reads well. LANGUAGE Patient reports that Georgian is preferred language for healthcare. Patient reports learning preference is to refer to handouts. Patient reports learning preference is attending one-to-one or group demonstrations. Patient reports learning preference is looking at pictures or viewing videos. Alcohol Use Screen (AUDIT-C) - V: Alcohol Screen: SCREEN FOR ALCOHOL (AUDIT-C) An alcohol screening test (AUDIT-C) was negative (score=0). 1. How often did you have a drink containing alcohol in the past year? Consider a drink to be a 12 ounce can or bottle of regular beer, 8 ounces of malt liquor, a 5 ounce glass of table wine, or a 1.5 ounce shot of liquor (like scotch, gin, or vodka). Never 2. How many drinks containing alcohol did you have on a typical day when you were drinking in the past year? Response not required due to responses to other questions. 3. How often did you have six or more drinks on one occasion in the past year? Response not required due to responses to other questions. Toxic Exposure Screening - CP,DI,L,NS,P,PH,S,U: The [place]/caregiver was asked if they believe the [place] experienced any toxic exposure(s), such as Airborne Hazards and Open Burn Pit, Mineral War related exposures, Agent [place], Radiation, contaminated water at [place] or other such exposures, while serving in the Armed [employer]. has no concerns about toxic exposure(s) while serving in the Armed Forces. The [place]/caregiver was informed that we will continue to ask this screening question every 5 years. They can contact their provider/healthcare team if they have concerns about exposures and would like to be screened sooner. Printed information was offered and provided if desired. /caridad/ ORALIA ROSARIO LPN LICENSED PRACTICAL NURSE Signed: 01/26/2025 09:10 ORALIA ROSARIO [facility]
--- OUTSIDE RECORDS SUMMARY | 2025-03-25 11:00 | XMS_ITS | Clinical Summary ---
Author Organization [facility] Address [address] [place] [address] Care Team Providers Care Toe Stapler Name Role Phone Unavailable Primary Care Provider Unavailabl e Social History Tobacco Use Types Packs/Day Years Used Date Smoking Tobacco: Never Assessed Sex and Gender Information Value Date Recorded Sex Assigned at Not on file Legal Sex Male 9:48 AM CDT Gender Identity Not on file Sexual Orientation Not on file Plan of Treatment Health Maintenance Due Date Last Done Comments HEPATITIS B VACCINES (1 of 3 - 19+ 3-dose series) 2014 DTAP/TDAP/TD VACCINES (2 - Td or Tdap) 02/18/2023 02/18/2013 INFLUENZA VACCINE (#1) 2025 7, 07/03/2016, 06/27/2015, Additional history exists HPV VACCINES Aged Out No longer eligi ble based on patient's age to complete this topic Insurance [employer]
--- OUTSIDE RECORDS SUMMARY | 2025-03-25 11:34 | XMS_ITS | Clinical Summary ---
Author Organization [facility] Address [address] [place] [address] Care Team Providers Care Upsetter Setter Up Name Role Phone Toni Francisco MD Primary [...] patient's age to complete this topic Insurance [facility] Care Teams Upsetter Setter Up Relationship Specialty Start Date End Date Toni Francisco MD [address] [place] [address] PCP - General Emergency Medicine 04/24/24
--- OUTSIDE RECORDS SUMMARY | 2025-03-25 11:34 | XMS_ITS | Referral Summary ---
Author Organization [facility] Address [address] [place] [address] Care Team Providers Care Cupola Melter Helper Name Role Phone Toni Francisco MD Primary [...] on file Insurance [employer] Care Teams Cupola Melter Helper Relationship Specialty Start Date End Date Toni Francisco MD [address] [place] [address] PCP - General Emergency Medicine 04/24/24
--- OUTSIDE RECORDS SUMMARY | 2025-03-25 11:34 | XMS_ITS | Continuity of Care Document ---
Author Name [facility] Organization [facility] Care Team Providers Care Quill Winder Name Role Phone [facility] Unavailable Unavailable Problems Combined list of problems from Department of Defense and Veterans Affairs facilities. It does not include entries that were removed or entered in error. Problem Status Onset Date Problem Type Date of Resolution Comments Source Attention deficit hyperactivity disorder Active Condition [facility] Depression Active Condition [facility] Diagnosis: ICD-10-CM F43.12 Post-traumatic stress disorder, chronic Active Diagnosis [facility] Diagnosis: ICD-10-CM F32.A Depression, unspecified Active Diagnosis [facility] Results Combined list of recent chemistry, hematology and other laboratory results from Department of [facility] and Veterans Affairs, ranging from 15 months to all on record, depending upon the facility. Order Name Results Value Reference Range Date Interpretation Specimen Comments Source CBC LEUKOCYTES [#/VOLUME] IN BLOOD BY AUTOMATED COUNT 8.6 10*3/uL 3.6 - 11.2 01/26 Specimen Type: BLOOD No comment entered. Ordering Provider: JEANNA PADGETT Report Released Date/Time: January 26, 2025 10:01 AM Reporting Lab: [facility] [address] [place] [phone] Performing Lab: [facility] [address] [place] [phone] [facility] CBC ERYTHROCYT ES [#/VOLUME] IN BLOOD BY AUTOMATED COUNT 4.67 10*6/uL 4.10 - 5.70 01/26 Specimen Type: BLOOD No comment entered. Ordering Provider: JEANNA PADGETT Report Released Date/Time: January 26, 2025 10:01 AM Reporting Lab: [facility] [address] [place] [phone] Performing Lab: [address] [address] [facility] CBC HEMOGLOBIN [MASS/VOLU ME] IN BLOOD 13.9 g/dL 13.1 - 16.8 01/26 Specimen Type: BLOOD No comment entered. Ordering Provider: JEANNA PADGETT Report Released Date/Time: January 26, 2025 10:01 AM Reporting Lab: [address] [address] Performing Lab: [address] [phone] [place] [address] CBC HEMATOCRIT [VOLUME FRACTION] OF BLOOD 41.6 38.2 - 48.4 01/26 Specimen Type: BLOOD No comment entered. Ordering Provider: JEANNA PADGETT Report Released Date/Time: January 26, 2025 10:01 AM Reporting Lab: [address] [address] Performing Lab: [address] [phone] [place] [address] CBC MCV [ENTITIC VOLUME] BY AUTOMATED COUNT 89.1 fL 80.0 - 100.0 01/26 Specimen Type: BLOOD No comment entered. Ordering Provider: JEANNA PADGETT Report Released Date/Time: January 26, 2025 10:01 AM Reporting Lab: [address] [address] Performing Lab: [address] [phone] [place] [address] CBC MCH [ENTITIC MASS] BY AUTOMATED COUNT 29.8 pg 27.0 - 34.0 01/26 Specimen Type: BLOOD No comment entered. Ordering Provider: JEANNA PADGETT Report Released Date/Time: January 26, 2025 10:01 AM Reporting Lab: [address] [address] Performing Lab: [address] [phone] [place] [address] CBC MCHC [MASS/VOLU ME] BY AUTOMATED COUNT 33.4 g/dL 33.0 - 36.0 01/26 Specimen Type: BLOOD No comment entered. Ordering Provider: JEANNA PADGETT Report Released Date/Time: January 26, 2025 10:01 AM Reporting Lab: [facility] [address] [place] [phone] Performing Lab: [facility] [address] [place] [phone] [facility] CBC PLATELETS [#/VOLUME] IN BLOOD BY AUTOMATED COUNT 300 10*3/uL 150 - 400 01/26 Specimen Type: BLOOD No comment entered. Ordering Provider: JEANNA PADGETT Report Released Date/Time: January 26, 2025 10:01 AM Reporting Lab: [place] [address] Performing Lab: [address] [phone] CBC PLATELET MEAN VOLUME [ENTITIC VOLUME] IN BLOOD BY AUTOMATED COUNT 9.7 fL 7.5 - 11.2 01/26 Specimen Type: BLOOD No comment entered. Ordering Provider: JEANNA PADGETT Report Released Date/Time: January 26, 2025 10:01 AM Reporting Lab: [facility] [address] [place] [phone] Performing Lab: [address] [phone] [place] [address] CBC ERYTHROCYT E DISTRIBUTI ON WIDTH [RATIO] BY AUTOMATED COUNT 12.3 11.8 - 15.1 01/26 Specimen Type: BLOOD No comment entered. Ordering Provider: JEANNA PADGETT Report Released Date/Time: January 26, 2025 10:01 AM Reporting Lab: [facility] [address] [place] [phone] Performing Lab: [address] [phone] [place] [address] CBC LYMPHOCYTE S/100 LEUKOCYTES IN BLOOD BY AUTOMATED COUNT 23 01/26 Specimen Type: BLOOD No comment entered. Ordering Provider: JEANNA PADGETT Report Released Date/Time: January 26, 2025 10:01 AM Reporting Lab: [facility] [address] [facility] [address] Performing Lab: [facility] [address] [facility] [address] [facility] CBC MONOCYTES/ 100 LEUKOCYTES IN BLOOD BY AUTOMATED COUNT 8 01/26 Specimen Type: BLOOD No comment entered. Ordering Provider: JEANNA PADGETT Report Released Date/Time: January 26, 2025 10:01 AM Reporting Lab: [facility] [address] [facility] [address] Performing Lab: [facility] [address] [facility] [address] [facility] CBC NEUTROPHIL S/100 LEUKOCYTES IN BLOOD BY AUTOMATED COUNT 65 01/26 Specimen Type: BLOOD No comment entered. Ordering Provider: JEANNA PADGETT Report Released Date/Time: January 26, 2025 10:01 AM Reporting Lab: [facility] [address] [facility] [address] Performing Lab: [facility] [address] [facility] [address] [facility] CBC EOSINOPHIL S/100 LEUKOCYTES IN BLOOD BY AUTOMATED COUNT 3 01/26 Specimen Type: BLOOD No comment entered. Ordering Provider: JEANNA PAGDETT Report Released Date/Time: January 26, 2025 10:01 AM Reporting Lab: [facility] [address] [facility] [address] Performing Lab: [facility] [address] [facility] [address] [facility] CBC BASOPHILS/ 100 LEUKOCYTES IN BLOOD BY AUTOMATED COUNT 1 01/26 Specimen Type: BLOOD No comment entered. Ordering Provider: JEANNA PADGETT Report Released Date/Time: January 26, 2025 10:01 AM Reporting Lab: [facility] [address] [facility] [address] Performing Lab: [facility] [address] [address] [facility] CBC LYMPHOCYTE S [#/VOLUME] IN BLOOD BY AUTOMATED COUNT 1.99 10*3/uL 0.77 - 4.50 01/26 Specimen Type: BLOOD No comment entered. Ordering Provider: JEANNA PADGETT Report Released Date/Time: January 26, 2025 10:01 AM Reporting Lab: [place] [phone] Performing Lab: [place] [phone] [place] [address] CBC MONOCYTES [#/VOLUME] IN BLOOD BY AUTOMATED COUNT 0.65 10*3/uL 0.19 - 0.80 01/26 Specimen Type: BLOOD No comment entered. Ordering Provider: JEANNA PADGETT Report Released Date/Time: January 26, 2025 10:01 AM Reporting Lab: [place] [phone] Performing Lab: [place] [phone] CBC NEUTROPHIL S [#/VOLUME] IN BLOOD BY AUTOMATED COUNT 5.58 10*3/uL 2.10 - 8.00 01/26 Specimen Type: BLOOD No comment entered. Ordering Provider: JEANNA PADGETT Report Released Date/Time: January 26, 2025 10:01 AM Reporting Lab: [address] [address] Performing Lab: [address] [address] [facility] CBC EOSINOPHIL S [#/VOLUME] IN BLOOD BY AUTOMATED COUNT 0.26 10*3/uL 0.00 - 0.60 01/26 Specimen Type: BLOOD No comment entered. Ordering Provider: JEANNA PADGETT Report Released Date/Time: January 26, 2025 10:01 AM Reporting Lab: [place] [phone] Performing Lab: [facility] [address] [facility] [address] [facility] CBC BASOPHILS [#/VOLUME] IN BLOOD BY AUTOMATED COUNT 0.09 10*3/uL 0.00 - 0.20 01/26 Specimen Type: BLOOD No comment entered. Ordering Provider: JEANNA PADGETT Report Released Date/Time: January 26, 2025 10:01 AM Reporting Lab: [facility] [address] [facility] [address] Performing Lab: [facility] [address] [facility] [address] [facility] COMPREHE NSIVE METABOLI C PANEL CREATININE [MASS/VOLU ME] IN SERUM OR PLASMA 0.74 mg/dL 0.7 - 1.3 01/26 Specimen Type: PLASMA Comment: No hemolysis noted. Ordering Provider: JEANNA PADGETT Report Released Date/Time: January 26, 2025 08:49 AM Reporting Lab: [facility] [address] [facility] [address] Performing Lab: [facility] [address] [address] [facility] COMPREHE NSIVE METABOLI C PANEL UREA NITROGEN [MASS/VOLU ME] IN SERUM OR PLASMA 9.3 mg/dL 9.0 - 25.0 01/26 Specimen Type: PLASMA Comment: No hemolysis noted. Ordering Provider: JEANNA PADGETT Report Released Date/Time: January 26, 2025 08:49 AM Reporting Lab: [facility] [address] [facility] [address] Performing Lab: [facility] [address] [facility] [address] [facility] COMPREHE NSIVE METABOLI C PANEL GLUCOSE [MASS/VOLU ME] IN SERUM OR PLASMA 82 mg/dL 72 - 99 01/26 Specimen Type: PLASMA Comment: No hemolysis noted. Ordering Provider: JEANNA PADGETT Report Released Date/Time: January 26, 2025 08:49 AM Reporting Lab: [facility] [address] [facility] [address] Performing Lab: [facility] [address] [facility] [address] [facility] COMPREHE NSIVE METABOLI C PANEL SODIUM [MOLES/VOL UME] IN SERUM OR PLASMA 138 meq/L 136 - 145 01/26 Specimen Type: PLASMA Comment: No hemolysis noted. Ordering Provider: JEANNA PADGETT Report Released Date/Time: January 26, 2025 08:49 AM Reporting Lab: [facility] [address] [facility] [address] Performing Lab: [facility] [address] [facility] [address] [facility] COMPREHE NSIVE METABOLI C PANEL POTASSIUM [MOLES/VOL UME] IN SERUM OR PLASMA 4.2 meq/L 3.5 - 5 01/26 Specimen Type: PLASMA Comment: No hemolysis noted. Ordering Provider: JEANNA PADGETT Report Released Date/Time: January 26, 2025 08:49 AM Reporting Lab: [facility] [address] [facility] [address] Performing Lab: [facility] [address] [facility] [address] [facility] COMPREHE NSIVE METABOLI C PANEL CHLORIDE [MOLES/VOL UME] IN SERUM OR PLASMA 105 meq/L 98 - 107 01/26 Specimen Type: PLASMA Comment: No hemolysis noted. Ordering Provider: JEANNA PADGETT Report Released Date/Time: January 26, 2025 08:49 AM Reporting Lab: [facility] [address] [facility] [address] Performing Lab: [facility] [address] [facility] [address] [facility] COMPREHE NSIVE METABOLI C PANEL CARBON DIOXIDE, TOTAL [MOLES/VOL UME] IN SERUM OR PLASMA 26 meq/L 22 - 31 01/26 Specimen Type: PLASMA Comment: No hemolysis noted. Ordering Provider: JEANNA PADGETT Report Released Date/Time: January 26, 2025 08:49 AM Reporting Lab: [facility] [address] [facility] [address] Performing Lab: [facility] [address] [facility] [phone] [place] [address] COMPREHE NSIVE METABOLI C PANEL CALCIUM [MASS/VOLU ME] IN SERUM OR PLASMA 9.5 mg/dL 8.4 - 10.4 01/26 Specimen Type: PLASMA Comment: No hemolysis noted. Ordering Provider: JEANNA PADGETT Report Released Date/Time: January 26, 2025 08:49 AM Reporting Lab: [facility] [address] [place] [phone] Performing Lab: [address] [phone] [place] [address] COMPREHE NSIVE METABOLI C PANEL PROTEIN [MASS/VOLU ME] IN SERUM OR PLASMA 7.7 g/dL 6 - 8.6 01/26 Specimen Type: PLASMA Comment: No hemolysis noted. Ordering Provider: JEANNA PADGETT Report Released Date/Time: January 26, 2025 08:49 AM Reporting Lab: [facility] [address] [place] [phone] Performing Lab: [facility] [address] [place] [phone] [facility] COMPREHE NSIVE METABOLI C PANEL ALBUMIN [MASS/VOLU ME] IN SERUM OR PLASMA 4.6 g/dL 3.4 - 5 01/26 Specimen Type: PLASMA Comment: No hemolysis noted. Ordering Provider: JEANNA PADGETT Report Released Date/Time: January 26, 2025 08:49 AM Reporting Lab: [facility] [address] [place] [phone] Performing Lab: [facility] [address] [place] [phone] [facility] COMPREHE NSIVE METABOLI C PANEL BILIRUBIN. TOTAL [MASS/VOLU ME] IN SERUM OR PLASMA 0.3 mg/dL 0.2 - 1.2 01/26 Specimen Type: PLASMA Comment: No hemolysis noted. Ordering Provider: JEANNA PADGETT Report Released Date/Time: January 26, 2025 08:49 AM Reporting Lab: [facility] [address] [facility] [address] Performing Lab: [facility] [address] [place] [phone] [facility] COMPREHE NSIVE METABOLI C PANEL ALKALINE PHOSPHATAS E [ENZYMATIC ACTIVITY/V OLUME] IN SERUM OR PLASMA 91 U/L 40 - 150 01/26 Specimen Type: PLASMA Comment: No hemolysis noted. Ordering Provider: JEANNA PADGETT Report Released Date/Time: January 26, 2025 08:49 AM Reporting Lab: [address] [address] Performing Lab: [address] [phone] [place] [address] COMPREHE NSIVE METABOLI C PANEL ASPARTATE AMINOTRANS FERASE [ENZYMATIC ACTIVITY/V OLUME] IN SERUM OR PLASMA 33 U/L 5 - 34 01/26 Specimen Type: PLASMA Comment: No hemolysis noted. Ordering Provider: JEANNA PADGETT Report Released Date/Time: January 26, 2025 08:49 AM Reporting Lab: [address] [address] Performing Lab: [facility] [address] [place] [address] [facility] COMPREHE NSIVE METABOLI C PANEL ALANINE AMINOTRANS FERASE [ENZYMATIC ACTIVITY/V OLUME] IN SERUM OR PLASMA 32 U/L 8 - 40 01/26 Specimen Type: PLASMA Comment: No hemolysis noted. Ordering Provider: JEANNA PADGETT Report Released Date/Time: January 26, 2025 08:49 AM Reporting Lab: [address] [address] Performing Lab: [facility] [address] [place] [phone] [facility] COMPREHE NSIVE METABOLI C PANEL GLOMERULAR FILTRATION RATE/1.73 SQ M.PREDICTE D [VOLUME RATE/AREA] IN SERUM, PLASMA OR BLOOD BY CREATININE -BASED FORMULA (CKD-EPI 2020) 125.8 60 01/26 Specimen Type: PLASMA Comment: No hemolysis noted. Ordering Provider: JEANNA PADGETT Report Released Date/Time: January 26, 2025 08:49 AM Reporting Lab: [facility] [address] [facility] [address] Performing Lab: [facility] [address] HEP C Ab HCV Ab (STL) HEPATITIS [...] January 26, 2025 10:00 AM Reporting Lab: [facility] [address] [facility] [address] Performing Lab: [address] HGA1C HEMOGLOBIN A1C/HEMOGL OBIN.TOTAL IN BLOOD 5.4 4.0 - 6.0 01/26 Specimen Type: BLOOD No comment entered. Ordering Provider: JEANNA PADGETT Report Released Date/Time: January 26, 2025 08:49 AM Reporting Lab: [facility] [address] [facility] [address] Performing Lab: [address] [phone] [place] [address] HIV COMBO FOURTH GENERATI ON (STL) HIV 1+2 AB+HIV1 P24 AG [PRESENCE] IN SERUM OR PLASMA BY IMMUNOASSA Y Nonreact lulu 01/26 Specimen Type: SERUM No comment entered. Ordering Provider: JEANNA PADGETT Report Released Date/Time: January 26, 2025 10:00 AM Reporting Lab: [facility] [address] [facility] [address] Performing Lab: [facility] [address] [facility] [address] [facility] LIPID PANEL (STL) CHOLESTERO L [MASS/VOLU ME] IN SERUM OR PLASMA 208 mg/dL 0 - 200 01/26 H Specimen Type: PLASMA Comment: No hemolysis noted. Ordering Provider: JEANNA PADGETT Report Released Date/Time: January 26, 2025 08:49 AM Reporting Lab: [facility] [address] [facility] [address] Performing Lab: [place] [address] [facility] [address] [facility] LIPID PANEL (STL) TRIGLYCERI DE [MASS/VOLU ME] IN SERUM OR PLASMA 126 mg/dL 0 - 150 01/26 Specimen Type: PLASMA Comment: No hemolysis noted. Ordering Provider: JEANNA PADGETT Report Released Date/Time: January 26, 2025 08:49 AM Reporting Lab: [address] [address] Performing Lab: [facility] [address] [facility] [address] [facility] LIPID PANEL (STL) CHOLESTERO L IN LDL [MASS/VOLU ME] IN SERUM OR PLASMA BY CALCULATIO N 131 mg/dL 01/26 Specimen Type: PLASMA Comment: No hemolysis noted. Ordering Provider: JEANNA PADGETT Report Released Date/Time: January 26, 2025 08:49 AM Reporting Lab: [facility] [address] [place] [phone] Performing Lab: [facility] [address] [facility] [address] [facility] LIPID PANEL (STL) CHOLESTERO L IN HDL [MASS/VOLU ME] IN SERUM OR PLASMA 52 mg/dL 40 01/26 Specimen Type: PLASMA Comment: No hemolysis noted. Ordering Provider: JEANNA PADGETT Report Released Date/Time: January 26, 2025 08:49 AM Reporting Lab: [place] [address] Performing Lab: [address] PROST. SPECIFIC AG.(PB-S TL) PROSTATE SPECIFIC [...] January 26, 2025 08:49 AM Reporting Lab: [place] [address] Performing Lab: [address] TSH W/ REFLEX FT4 (STL) THYROTROPI N [UNITS/VOL UME] IN SERUM OR PLASMA 0.381 u[IU]/mL 0.47 - 5 01/26 L Specimen Type: PLASMA No comment entered. Ordering Provider: JEANNA PADGETT Report Released Date/Time: January 26, 2025 08:49 AM Reporting Lab: [place] [address] Performing Lab: [address] TSH W/ REFLEX FT4 (STL) FREE T4(REFLEX) 1.05 ng/mL 0.7 - 1.48 01/26 Specimen Type: PLASMA No comment entered. Ordering Provider: JEANNA PADGETT Report Released Date/Time: January 26, 2025 08:49 AM Reporting Lab: [place] [address] Performing Lab: [address] [facility] [address] [facility] Vital Signs Combined list of inpatient and outpatient Vital Signs from Department of Defense and Veterans Affairs, ranging from 12 months to all on record, depending upon the facility. Vital Sign Value Date Comments Source SYSTOLIC BLOOD PRESSURE 125 01/27/20 25 08:58:16 [facility] DIASTOLIC BLOOD PRESSURE 82 025 08:58:16 [facility] PULSE OXIMETRY 100 01/26/2025 08:58:16 [facility] WEIGHT 190 01/26/2025 08:58:16 [facility] BMI 27 kg/m2 01/26/2025 08:58:16 [facility] PAIN 0 01/26/2025 08:58:16 [facility] HEIGHT 70 01/26/2025 08:58:16 [facility] TEMPERATURE 98.1 01/26/2025 08:58:16 [facility] PULSE 86 01/26/2025 08:58:16 [facility] RESPIRATION 18 01/26/2025 08:58:16 [facility] Encounters Combined list of: 1) Encounters from Department of Veterans Affairs facilities going backup to the last 18 months, not all [place] inpatient encounters are included; 2) Encounters from the Department of Defense facilities going backup to 280 months. Location Location Details Encounter Type Encounter Number Reason For Visit Attending Provider ADM Date DC Date Status Disposition Source [facility] Outpatient Encounter [id number] 01/03 [facility] OFFICE O/P NEW MOD 45 MIN [id number] Diagnos is: ICD-10- CM F32.A Depress ion, unspeci fiKASANDRA Elise SALENA N 01/26 [facility] PSYTX W PT 30 MINUTES [id number] Diagnos is: ICD-10- CM F43.12 Post-tr aumatic stress disorde r, chronic WIEGMAN,CL HARPREET E 01/26 [facility] Social History Combined list of available smoking, tobacco, and other social history from Department of Defense and Veterans Affairs facilities. Social History Type Response Date Comment Sourc e Tobacco smoking status NHIS VA-TOBACCO USE SOME DAYS CIGARETTES 01/26/2025 [facility] History of tobacco use VA-TOBACCO USE EVERY DAY OTHER TYPE 01/26/2025 [facility] Plan of Care List of future care activities from Department of Veterans Affairs facilities. Additional future care activities may be listed in the Assessment and Plan section. Date/Time Care Activity Care Activity Detail Facili ty 06/26/2025 AMBULATORY - PSYCHIATRY AMBULATORY - PSYC HIATRY [facility]
--- OUTSIDE RECORDS SUMMARY | 2025-03-25 11:34 | XMS_ITS | Clinical Summary ---
Author Organization [facility] Address [address] [place] [address] Care Team Providers Care Community Health Nurse Supervisor Name Role Phone Unavailable Primary Care Provider [...]
[2025-03-25 11:52] LABS: Hematocrit 32.5 % (42.0-52.0); Hemoglobin 11.0 g/dL (14.0-18.0); Immature Granulocyte Percent A 0.2 % (0-0.5); Lymphocytes Absolute Auto 2.05 K/mm3 (0.9-3.2); Mean Corpuscular HGB Conc 33.8 g/dl (32-36); Mean Corpuscular Hemoglobin 29.9 pg (26-34); Mean Corpuscular Volume 88.3 fl (80-100); Nucleated Red Blood Cells Absolute Auto 0.000 K/mm3 (0.0-0.012); Nucleated Red Blood Cells Perc 0.0 % (0.0-0.2); Platelet Count Result 279 k/mm3 (150-375); Red Blood Count 3.68 M/mm3 (4.6-6.20); White Blood Count 5.8 K/mm3 (4.5-10.0)
[2025-03-25 11:56] LABS: Add Urine Microscopic? NO; Appearance Urine Clear (Clear); Glucose Urine UA Negative (Negative); Leukocyte Esterase Ur Negative LEU/UL (Negative); Nitrate Urine Negative (Negative); Specific Grav Ur 1.028 (1.001-1.035)
[2025-03-25 12:02] LABS: Alanine Aminotransferase 20 U/L (6-50); Albumin Level 4.3 g/dL (3.5-5.1); Alkaline Phosphatase 53 U/L (38-126); Anion Gap 7 mmol/L (4-12); Aspartate Amino Transferase 23 U/L (17-59); Bilirubin,Total 0.2 mg/dL (0.2-1.3); Blood Urea Nitrogen 20 mg/dL (9-20); Calcium 9.0 mg/dL (8.4-10.2); Carbon Dioxide 25 mmol/L (22-30); Chloride 106 mmol/L (98-107); Estimated CRCL calculation 128 ml/min; Estimated Glomerular Filt Rate > 60; Glucose 84 mg/dL (65-110); Lipase 53 U/L (23-300); Potassium 4.2 mmol/L (3.4-5.0); Sodium 138 mmol/L (137-145); Total Protein 7.0 g/dL (6.3-8.2)
[2025-03-25] MEDS: LACTATED RINGERS 1,000 ML 999 ML IV CONT (12:16)
--- NOTE | 2025-03-25 12:21 | ED.GENADULT ---
HPI - General Adult General Chief complaint: Nausea/Vomiting/Diarrhea Stated complaint: nausea and burning sensation Time Seen by Provider: 03/25/25 11:15 History of Present Illness HPI narrative: 29-year-old male presents emergency department for evaluation for 1 week of nausea and upper abdominal pain and some dark tarry stool. Patient began having some dark tarry stool yesterday, he had two similar bowel movements yesterday and no bowel movements yet today. Related Data Allergies Allergy/AdvReac Type Severity Reaction Status Date / Time No Known Allergies Allergy Verified 11/29/24 15:02 Review of Systems Review of Systems: All systems reviewed & are unremarkable except as noted in HPI and below PMFSH Past Medical History Medical History Depression ADHD (attention deficit hyperactivity disorder) Vitamin D deficiency PTSD (post-traumatic stress disorder) Headache Social History Social History Years smoked: 9 Smoking status: Current some day smoker Tobacco type: e-cigarettes/vaping Alcohol intake: former Alcohol use details: 3-4 drinks per year Substance use: never Substance use type: does not use Do You Feel Safe in your Home?: Yes Lack of Transportation: No Lack of Food: Never True Current Housing: Decline to Answer Concerned About Future Housing: Decline to Answer Difficulty Paying Gas/Electric Bills: Decline to Answer Difficulty Paying for Meds: Decline to Answer Currently Unemployed: Decline to Answer Education: Decline to Answer Difficulty w/ Childcare or Family Care: Decline to Answer Spiritual care concerns: No Exam Narrative: APPEARANCE: Well appearing, no pain, no distress, well-nourished. HEAD: normocephalic, atraumatic. EYES: PERRLA/EOMI, conjunctivae clear. NOSE: Normal no drainage EARS:TMS clear with good light reflex. THROAT: Pharynx clear, no exudate. NECK: Supple. No adenopathy, no masses. RESPIRATORY: Airway patent, respirations nonlabored. Clear to auscultation bilaterally, no rales, rhonchi, wheezing. CARDIOVASCULAR: Regular rate and rhythm without murmurs rubs or gallops. ABDOMINAL: Soft, nontender, nondistended, normal bowel sounds MUSCULOSKELETAL: Moves all extremities. Strength/ROM intact, No edema, No calf tenderness. NEURO: Alert. Cranial nerves II through XII intact. Good gait. Good coordination SKIN: Warm, dry. Normal Color Rectal exam: Occult positive melena stool Course Vital Signs Vital signs: Vital Signs Temperature 98.1 F 03/25/25 11:09 Pulse Rate 103 H 03/25/25 11:09 Respiratory Rate 16 03/25/25 11:09 Blood Pressure 114/67 03/25/25 11:09 Pulse Oximetry 100 03/25/25 11:09 Oxygen Delivery Room Air 03/25/25 11:09 Temperature 97.8 F 03/25/25 15:01 Pulse Rate 109 H 03/25/25 18:00 Respiratory Rate 20 03/25/25 15:01 Blood Pressure 112/77 03/25/25 15:01 Pulse Oximetry 100 03/25/25 15:01 Oxygen Delivery Room Air 03/25/25 16:00 Medical Decision Making MDM Narrative Medical decision making narrative: 29-year-old male presents emergency department for evaluation for 1 week upper abdominal pain with associated nausea on and 2 days of black tarry stool. Patient was Hemoccult positive on his rectal exam. Patient had no bright red blood but did have dark Hemoccult positive melena stool. Patient is afebrile with no leukocytosis, patient's hemoglobin 11.0 which is lower than his previous baseline from 2 years ago. Patient's creatinine is 0.76 and a BUN of 20. Patient has no acute abnormalities on his UA. Patient was started on IV Protonix the emergency department and will be made NPO. GI was consulted, q.8 H&H was ordered. Patient was updated the results the workup and plan for admission with anticipated endoscopy tomorrow. Differential Diagnosis Differential Diagnosis: Upper GI, gastric ulcer, perforated gastric ulcer, colitis, diverticular Vital Signs Vital Signs: Vital Signs Temperature 98.1 F 03/25/25 11:09 Pulse Rate 103 H 03/25/25 11:09 Respiratory Rate 16 03/25/25 11:09 Blood Pressure 114/67 03/25/25 11:09 Pulse Oximetry 100 03/25/25 11:09 Oxygen Delivery Room Air 03/25/25 11:09 Temperature 97.8 F 03/25/25 15:01 Pulse Rate 109 H 03/25/25 18:00 Respiratory Rate 20 03/25/25 15:01 Blood Pressure 112/77 03/25/25 15:01 Pulse Oximetry 100 03/25/25 15:01 Oxygen Delivery Room Air 03/25/25 16:00 Lab Data Lab results reviewed: Yes I reviewed the patient's lab results. 03/25/25 13:01 03/25/25 11:44 Labs: Lab Results 03/25/25 03/25/25 Range/Units 11:44 13:01 WBC 5.8 (4.5-10.0) K/mm3 RBC 3.68 L (4.6-6.20) M/mm3 Hgb 11.0 L 9.3 L (14.0-18.0) g/dL Hct 32.5 L 27.8 L (42.0-52.0) % MCV 88.3 (80-100) fl MCH 29.9 (26-34) pg MCHC 33.8 (32-36) g/dl RDW 12.2 (11.5-14.5) % Plt Count 279 (150-375) k/mm3 MPV 9.3 (7.4-10.4) fl Immature Gran % (Auto) 0.2 (0-0.5) % Neut % (Auto) 54.6 (45.5-73.1) % Lymph % (Auto) 35.4 (18.3-44.2) % [place] % (Auto) 8.3 (2.6-8.5) % Eos % (Auto) 0.5 (0-4.4) % Baso % (Auto) 1.0 (0.2-1.2) % Lymph # (Auto) 2.05 (0.9-3.2) K/mm3 [place] # (Auto) 0.5 (0.1-0.6) K/mm3 Eos # (Auto) 0.0 (0-0.3) K/mm3 Baso # (Auto) 0.1 (0.0-0.1) K/mm3 Abs Immat Gran (auto) 0.01 (0.00-0.031) K/mm3 Absolute Neuts (auto) 3.2 (1.3-6.7) K/mm3 Absolute Nucleated RBC 0.000 (0.0-0.012) K/mm3 Nucleated RBC % 0.0 (0.0-0.2) % Sodium 138 (137-145) mmol/L Potassium 4.2 (3.4-5.0) mmol/L Chloride 106 (98-107) mmol/L Carbon Dioxide 25 (22-30) mmol/L Anion Gap 7 (4-12) mmol/L BUN 20 (9-20) mg/dL Creatinine 0.76 (0.7-1.3) mg/dL Estim Creat Clear Calc 128 ml/min Estimated GFR > 60 (59 - ) Glucose 84 (65-110) mg/dL Calcium 9.0 (8.4-10.2) mg/dL Total Bilirubin 0.2 (0.2-1.3) mg/dL AST 23 (17-59) U/L ALT 20 (6-50) U/L Alkaline Phosphatase 53 (38-126) U/L Total Protein 7.0 (6.3-8.2) g/dL Albumin 4.3 (3.5-5.1) g/dL Lipase 53 (23-300) U/L Urine Color Yellow (Yellow) Urine Appearance Clear (Clear) Urine pH 5.5 (5.0-9.0) Ur Specific [place] 1.028 (1.001-1.035) Urine Protein Negative (Negative) mg/dL Urine Glucose (UA) Negative (Negative) mg/dL Urine Ketones Trace H (Negative) mg/dL Ur Blood (Man) Negative (Negative) Urine Nitrate Negative (Negative) Urine Bilirubin Negative (Negative) Urine Urobilinogen 0.2 (<2.0) mg/dL Leukocyte Esterase Rfl Negative (Negative) MELISSA/UL Blood Type O Positive Antibody Screen Negative Imaging Data Radiologist's impression: Impressions Abdomen/Pelvis CT 03/25/25 13:09 IMPRESSION: 7 mm nonobstructing right renal stone. Rectosigmoid diverticulosis without surrounding inflammatory change. Discharge Plan Discharge Clinical Impression: Acute upper GI bleed, Melena Patient Disposition: Still a Patient Condition: Stable
[2025-03-25] MEDS: PANTOPRAZOLE SODIUM IV 40 MG VIAL IV PUSH ×2 (12:47→20:28)
[2025-03-25 13:06] LABS: Hematocrit 27.8 % (42.0-52.0); Hemoglobin 9.3 g/dL (14.0-18.0)
[2025-03-25] MEDS: LACTATED RINGERS 1,000 ML 125 ML IV CONT ×2 (13:52→22:20)
--- NOTE | 2025-03-25 14:18 | P.HP_ITS ---
H&P: HPI History of Present Illness Date/Time: 03/25/25 14:18 Chief Complaint: abdominal pain, change in stool Narrative: 29 y/o M with PMH ADHD, vitamin D deficiency, and PTSD presents here with abdominal pain and change in stool. The patient presents here from home on 03/25 for further evaluation of abdominal pain and change in his stool. He reports yesterday's bowel movement that occurred in the morning was darker than usual - dark/black appearance, occurred twice. Last bowel movement on 03/24 late morning/early afternoon. He reports this was precipitated by a mild abdominal discomfort and nausea for the past week. He further describes the abdominal pain as upper, bilateral, burning, nonradiating, constant (worse in the morning), very mild relief with Tums, and no aggravating factors. He denies history of GI bleed or gastric ulcer. He he has never undergone a EGD or colonoscopy. The patient denies alcohol intake. Initial VS at presentation: 98.1? F, HR 103, RR 16, 114/67, and 100% on RA. ED workup showed: No leukocytosis, hemoglobin 11 (14.4 on 01/26/2023), no electrolyte derangements, renal function within normal limits, lipase and LFTs within normal limits. UA showed trace ketones otherwise unremarkable. CT of the abdomen/pelvis showed a 7 mm nonobstructing right renal stone, rectosigmoid diverticulosis without surrounding inflammatory change. Review of Systems Review of Systems: All systems reviewed & are unremarkable except as noted in HPI and below PMFSH Past Medical History Medical History Depression ADHD (attention deficit hyperactivity disorder) Vitamin D deficiency PTSD (post-traumatic stress disorder) Headache Social History Social History Years smoked: 9 Smoking status: Current some day smoker Tobacco type: e-cigarettes/vaping Alcohol intake: former Alcohol use details: 3-4 drinks per year Substance use: never Substance use type: does not use Do You Feel Safe in your Home?: Yes Lack of Transportation: No Lack of Food: Never True Current Housing: Decline to Answer Concerned About Future Housing: Decline to Answer Difficulty Paying Gas/Electric Bills: Decline to Answer Difficulty Paying for Meds: Decline to Answer Currently Unemployed: Decline to Answer Education: Decline to Answer Difficulty w/ Childcare or Family Care: Decline to Answer Spiritual care concerns: No Meds Home Medications and Allergies Home Medications ?Medication ?Instructions ?Recorded ?Confirmed ?Type dextroamphetamine-amphetamine 20 20 mg PO DAILY #30 tabs 03/20/25 03/25/25 Rx mg tablet dextroamphetamine-amphetamine ER 20 mg PO QAM #30 caps 03/20/25 03/25/25 Rx 20 mg 24hr capsule,extend release (Adderall XR) Allergies Allergy/AdvReac Type Severity Reaction Status Date / Time No Known Allergies Allergy Verified 11/29/24 15:02 Vital Signs Vital Signs - 24 hr 03/25/25 11:09 Temperature 98.1 F Pulse Rate 103 H Respiratory Rate 16 Blood Pressure 114/67 Pulse Oximetry 100 Oxygen Delivery Room Air Exam Const: General: comfortable and no acute distress Other: , male, nontoxic appearance HENMT: Face/Nose/Sinus: Normal nares present Mouth: Yes moist mucous membranes Eyes: General: appearance normal, both eyes and all related structures Sclera: sclerae normal Pupils: Equal, round and reactive pupils present EOM: EOMs intact bilaterally Resp: Effort & Inspection: normal respiratory effort Auscultation: clear to auscultation bilaterally Cardio: Rate: regular rate Rhythm: regular rhythm Other: S1-S2 present without murmur, rub, ectopy GI: Other: Abdomen soft, nondistended, nontender. Normoactive bowel sounds in all quadrants. Skin: General skin exam: normal color and no rashes or lesions noted Wounds: no wounds Neuro: Speech: normal speech Motor exam (neuro): 5/5 motor strength present throughout Sensory Exam: normal sensation Other: A&O x4 Extrem: General: normal to inspection Psych: Mental Status: mental status grossly normal Affect: normal affect Other: Good insight and judgment, pleasant H&P: Results Labs Labs: Short CBC 03/25/25 03/25/25 Range/Units 11:44 13:01 WBC 5.8 (4.5-10.0) K/mm3 Hgb 11.0 L 9.3 L (14.0-18.0) g/dL Hct 32.5 L 27.8 L (42.0-52.0) % Plt Count 279 (150-375) k/mm3 [facility] 03/25/25 11:44 Sodium 138 Potassium 4.2 Chloride 106 Carbon Dioxide 25 BUN 20 Creatinine 0.76 Glucose 84 Calcium 9.0 Liver Function 03/25/25 Range/Units 11:44 Total Bilirubin 0.2 (0.2-1.3) mg/dL AST 23 (17-59) U/L ALT 20 (6-50) U/L Alkaline Phosphatase 53 (38-126) U/L Albumin 4.3 (3.5-5.1) g/dL Urine 03/25/25 Range/Units 11:44 Urine Color Yellow (Yellow) Urine Appearance Clear (Clear) Urine pH 5.5 (5.0-9.0) Ur Specific [place] 1.028 (1.001-1.035) Urine Protein Negative (Negative) mg/dL Urine Glucose (UA) Negative (Negative) mg/dL Assessment and Plan Assessment and plan (1) Acute upper GI bleed: Code(s): K92.2 - Gastrointestinal hemorrhage, unspecified Status: Acute Assessment and Plan: - Hgb 11 (14.4 on 01/26/2023) -> 9.3, modest drop in hemoglobin. Did receive IV fluids. Monitor. - hemoccult+ on 03/25 - not on anticoagulation, no history of GI bleed, no history of gastro Ed - CT abd/pelvis: 7 mm nonobstructing right renal stone. Rectosigmoid diverticulosis without surrounding inflammatory change. - GI consulted ? ED spoke with on-call maintainer operator, Christie KNOTT, anticipate endoscopy tomorrow - trend H&H - started on pantoprazole BID, hold NSAIDs - no prior EGD or colonoscopy - clear liquids -> NPO at midnight - IV fluids: 1L bolus -> 125 mL/hr - monitor hemodynamic stability and telemetry Plan Diet:? clear liquid -> NPO at midnight GI Prophylaxis: ?PPI b.i.d. DVT Prophylaxis: SCDs IV fluids: 1L bolus -> 125 mL/hr Lines/Tubes: ?Peripheral IV Code Status:? Full code Quality VTE Prophylaxis VTE prophylaxis: mechanical ordered Hospitalist [facility] Advance Care Plan I have confirmed that the patient's Advanced Care Plan is present, code status is documented, or surrogate decision maker is listed in patient medical record.: Yes Medication Reconciliation I have utilized all available resources to obtain, update and review the patients current medications (includes all prescriptions, OTC, herbals, cannabis, and nutritional supplements).: Yes
--- NOTE | 2025-03-25 14:59 | ADMGEN ---
This patient, Rodríguez Barkley, was admitted to IMU Room 201-01. Patient/family oriented to hospital policies and general routines including ID bracelet, bed and alarms, visiting hours, pain management, procedures, bathroom and other care routines, personal items, smoking policy, room service/diet, and visiting hours. Information on how to activate the Rapid Response Team has been discussed. Patient/Family are encouraged to report perceived risks to care and to ask questions if they do not understand what they are told or what they should do.
[2025-03-25 20:05] LABS: Hematocrit 28.8 % (42.0-52.0); Hemoglobin 9.6 g/dL (14.0-18.0)
[2025-03-25] MEDS: ACETAMINOPHEN 325 MG TABLET 650 MG PO (20:28)
[2025-03-26] VITALS (14 sets, daily range): BP systolic 88–119; BP diastolic 44–87; PULSE 71–99; RESP 16–21; TEMP 36.7–36.9; O2SAT 95–100
[2025-03-26 04:12] LABS: Hematocrit 29.0 % (42.0-52.0); Hemoglobin 9.7 g/dL (14.0-18.0); Immature Granulocyte Percent A 0.2 % (0-0.5); Lymphocytes Absolute Auto 2.58 K/mm3 (0.9-3.2); Mean Corpuscular HGB Conc 33.4 g/dl (32-36); Mean Corpuscular Hemoglobin 30.2 pg (26-34); Mean Corpuscular Volume 90.3 fl (80-100); Nucleated Red Blood Cells Absolute Auto 0.000 K/mm3 (0.0-0.012); Nucleated Red Blood Cells Perc 0.0 % (0.0-0.2); Platelet Count Result 255 k/mm3 (150-375); Red Blood Count 3.21 M/mm3 (4.6-6.20); White Blood Count 6.1 K/mm3 (4.5-10.0)
[2025-03-26 04:27] LABS: Alanine Aminotransferase 23 U/L (6-50); Albumin Level 3.7 g/dL (3.5-5.1); Alkaline Phosphatase 48 U/L (38-126); Anion Gap 6 mmol/L (4-12); Aspartate Amino Transferase 23 U/L (17-59); Bilirubin,Total 0.3 mg/dL (0.2-1.3); Blood Urea Nitrogen 11 mg/dL (9-20); Calcium 8.8 mg/dL (8.4-10.2); Carbon Dioxide 26 mmol/L (22-30); Chloride 107 mmol/L (98-107); Estimated CRCL calculation 137 ml/min; Estimated Glomerular Filt Rate > 60; Glucose 90 mg/dL (65-110); Potassium 4.3 mmol/L (3.4-5.0); Sodium 139 mmol/L (137-145); Total Protein 5.9 g/dL (6.3-8.2)
--- NOTE | 2025-03-26 07:00 | P.CONGI_ITS ---
Assessment and Plan Assessment and plan (1) Melena: Code(s): K92.1 - Melena Status: Acute Assessment and Plan: The patient's presentation with melena is highly suggestive of an upper GI bleeding. A history of frequent Excedrin use for headache management points to peptic ulcer disease as a primary possibilitty in the differential diagnosis. While hemodynamically stable with no significant drop in hemoglobin, active bleeding is less probable. An EGD is planned for this afternoon to clarify the underlying etiology. if no active bleeding and no endoscopic therapeutic intervention is needed (cauterization, clipping etc) , discharge might be anticipated for later after EGD. GI Consult Note Consult date/time: 03/26/25 07:00 Reason for consult: Melena HPI: Mr. Rodríguez Barkley, a 29-year-old male with no remarkable past medical history, was admitted yesterday following two episodes of melena, which was verifyed by the ER physician. Upon arrival, he was tachycardic (HR 103 bpm) with a blood pressure of 114/67 mmHg. He denied any vomiting of blood but stated having several days of mild to moderate, sharp epigastric pain for which he took TUMS. He takes frequent Excedrin for headaches. Laboratory evaluation showed a drop in hemoglobin from 14.4 (January 2023) to 11 on admission, 9.7 this morning. His WBC was 5.8 platelets 279, sodium 138 potassium 4.2 , and creatinine 0.[address] scan of the abdomen and pelvis was unremarkable. Review of Systems 2 Review of Systems: All systems reviewed & are unremarkable except as noted in HPI and below PMFSH Past Medical History Medical History Depression ADHD (attention deficit hyperactivity disorder) Vitamin D deficiency PTSD (post-traumatic stress disorder) Headache Social History Social History Years smoked: 9 Smoking status: Current some day smoker Tobacco type: e-cigarettes/vaping Alcohol intake: former Alcohol use details: 3-4 drinks per year Substance use: never Substance use type: does not use Do You Feel Safe in your Home?: Yes Lack of Transportation: No Lack of Food: Never True Current Housing: Decline to Answer Concerned About Future Housing: Decline to Answer Difficulty Paying Gas/Electric Bills: Decline to Answer Difficulty Paying for Meds: Decline to Answer Currently Unemployed: Decline to Answer Education: Decline to Answer Difficulty w/ Childcare or Family Care: Decline to Answer Spiritual care concerns: No Meds Home Medications and Allergies Home Medications ?Medication ?Instructions ?Recorded ?Confirmed ?Type dextroamphetamine-amphetamine 20 20 mg PO DAILY #30 tabs 03/20/25 03/25/25 Rx mg tablet dextroamphetamine-amphetamine ER 20 mg PO QAM #30 caps 03/20/25 03/25/25 Rx 20 mg 24hr capsule,extend release (Adderall XR) Allergies Allergy/AdvReac Type Severity Reaction Status Date / Time No Known Allergies Allergy Verified 11/29/24 15:02 Vital Signs Vital Signs - 24 hr 03/25/25 11:09 03/25/25 14:28 03/25/25 15:01 Temperature 98.1 F 97.7 F 97.8 F Pulse Rate 103 H 87 91 Respiratory Rate 16 16 20 Blood Pressure 114/67 118/70 112/77 Pulse Oximetry 100 97 100 Oxygen Delivery Room Air 03/25/25 16:00 03/25/25 16:00 03/25/25 18:00 Temperature Pulse Rate 99 109 H Respiratory Rate Blood Pressure Pulse Oximetry Oxygen Delivery Room Air 03/25/25 20:00 03/25/25 20:00 03/25/25 20:00 Temperature 97.8 F Pulse Rate 89 96 Respiratory Rate 16 Blood Pressure 107/69 Pulse Oximetry 100 Oxygen Delivery Room Air 03/25/25 21:20 03/25/25 22:00 03/25/25 23:49 Temperature 97.8 F Pulse Rate 81 86 Respiratory Rate 16 Blood Pressure 90/56 L Pulse Oximetry 99 98 Oxygen Delivery Room Air 03/26/25 00:00 03/26/25 00:00 03/26/25 02:00 Temperature Pulse Rate 76 75 Respiratory Rate Blood Pressure Pulse Oximetry Oxygen Delivery Room Air 03/26/25 02:14 03/26/25 03:48 03/26/25 04:00 Temperature 98.1 F Pulse Rate 87 Respiratory Rate 16 Blood Pressure 108/45 L 99/53 L Pulse Oximetry 95 Oxygen Delivery Room Air 03/26/25 04:00 03/26/25 06:00 Temperature Pulse Rate 80 85 Respiratory Rate Blood Pressure Pulse Oximetry Oxygen Delivery Exam 2 Const: General: cooperative and healthy appearing Resp: Effort & Inspection: normal respiratory effort and able to speak in complete sentences Auscultation: clear to auscultation bilaterally Cardio: Rate: regular rate Rhythm: regular rhythm GI: Inspection: normal to inspection GI Palp: No No hepatosplenomegaly present Auscultation: normal bowel sounds Rectal Exam: deferred Skin: General skin exam: normal color Psych: Appearance: grossly normal Mental Status: mental status grossly normal Results Labs 03/26/25 03:38 03/26/25 03:38 Labs: Short CBC 03/25/25 03/25/25 03/25/25 Range/Units 11:44 13:01 19:59 WBC 5.8 (4.5-10.0) K/mm3 Hgb 11.0 L 9.3 L 9.6 L (14.0-18.0) g/dL Hct 32.5 L 27.8 L 28.8 L (42.0-52.0) % Plt Count 279 (150-375) k/mm3 03/26/25 Range/Units 03:38 WBC 6.1 (4.5-10.0) K/mm3 Hgb 9.7 L (14.0-18.0) g/dL Hct 29.0 L (42.0-52.0) % Plt Count 255 (150-375) k/mm3 BMP 03/25/25 03/26/25 11:44 03:38 Sodium 138 139 Potassium 4.2 4.3 Chloride 106 107 Carbon Dioxide 25 26 BUN 20 11 D Creatinine 0.76 0.71 Glucose 84 90 Calcium 9.0 8.8 Liver Function 03/25/25 03/26/25 Range/Units 11:44 03:38 Total Bilirubin 0.2 0.3 (0.2-1.3) mg/dL AST 23 23 (17-59) U/L ALT 20 23 (6-50) U/L Alkaline Phosphatase 53 48 (38-126) U/L Albumin 4.3 3.7 (3.5-5.1) g/dL Urine 03/25/25 Range/Units 11:44 Urine Color Yellow (Yellow) Urine Appearance Clear (Clear) Urine pH 5.5 (5.0-9.0) Ur Specific [place] 1.028 (1.001-1.035) Urine Protein Negative (Negative) mg/dL Urine Glucose (UA) Negative (Negative) mg/dL
[2025-03-26] MEDS: LACTATED RINGERS 1,000 ML 125 ML IV CONT ×2 (08:24→12:51)
[2025-03-26] MEDS: PANTOPRAZOLE SODIUM IV 40 MG VIAL IV PUSH (08:24)
--- NOTE | 2025-03-26 10:55 | WPDANESEPPF ---
Anes - Initial Pre Proc Eval Procedure: Operation Date: 03/26/25 15:15 Proposed Procedures p Esophagogastroduodenoscopy - Bharat Soriano MD Operation Date: 03/26/25 15:45 Proposed Procedures p Esophagogastroduodenoscopy - Bharat Soriano MD Date/Time: 03/26/25 10:55 Surgeon: Khai Lentz MD Pre Op Diagnosis: Upper GI Bleed Patient Data Age: 29 Gender: M Height: 1.78 m Weight: 85.9 kg Last Vital Signs Temp 98.2 F 03/26/25 08:00 Pulse 78 03/26/25 10:00 Resp 18 03/26/25 08:00 BP 99/49 L 03/26/25 08:00 Pulse Ox 96 03/26/25 08:00 O2 Del Method Room Air 03/26/25 04:00 Allergies Allergy/AdvReac Type Severity Reaction Status Date / Time No Known Allergies Allergy Verified 03/26/25 10:55 Home Medications ?Medication ?Instructions ?Recorded ?Confirmed ?Type dextroamphetamine-amphetamine 20 20 mg PO DAILY #30 tabs 03/20/25 03/25/25 Rx mg tablet dextroamphetamine-amphetamine ER 20 mg PO QAM #30 caps 03/20/25 03/25/25 Rx 20 mg 24hr capsule,extend release (Adderall XR) Laboratory Tests 03/25/25 03/25/25 03/25/25 11:44 13:01 19:59 WBC 5.8 K/mm3 (4.5-10.0) RBC 3.68 L M/mm3 (4.6-6.20) Hgb 11.0 L g/dL 9.3 L g/dL 9.6 L g/dL (14.0-18.0) (14.0-18.0) (14.0-18.0) Hct 32.5 L % 27.8 L % 28.8 L % (42.0-52.0) (42.0-52.0) (42.0-52.0) MCV 88.3 fl (80-100) MCH 29.9 pg (26-34) MCHC 33.8 g/dl (32-36) RDW 12.2 % (11.5-14.5) Plt Count 279 k/mm3 (150-375) MPV 9.3 fl (7.4-10.4) Immature Gran % (Auto) 0.2 % (0-0.5) Neut % (Auto) 54.6 % (45.5-73.1) Lymph % (Auto) 35.4 % (18.3-44.2) [place] % (Auto) 8.3 % (2.6-8.5) Eos % (Auto) 0.5 % (0-4.4) Baso % (Auto) 1.0 % (0.2-1.2) Lymph # (Auto) 2.05 K/mm3 (0.9-3.2) [place] # (Auto) 0.5 K/mm3 (0.1-0.6) Eos # (Auto) 0.0 K/mm3 (0-0.3) Baso # (Auto) 0.1 K/mm3 (0.0-0.1) Abs Immat Gran (auto) 0.01 K/mm3 (0.00-0.031) Absolute Neuts (auto) 3.2 K/mm3 (1.3-6.7) Absolute Nucleated RBC 0.000 K/mm3 (0.0-0.012) Nucleated RBC % 0.0 % (0.0-0.2) Sodium 138 mmol/L (137-145) Potassium 4.2 mmol/L (3.4-5.0) Chloride 106 mmol/L (98-107) Carbon Dioxide 25 mmol/L (22-30) Anion Gap 7 mmol/L (4-12) BUN 20 mg/dL (9-20) Creatinine 0.76 mg/dL (0.7-1.3) Estim Creat Clear Calc 128 ml/min Estimated GFR > 60 (59 - ) Glucose 84 mg/dL (65-110) Calcium 9.0 mg/dL (8.4-10.2) Total Bilirubin 0.2 mg/dL (0.2-1.3) AST 23 U/L (17-59) ALT 20 U/L (6-50) Alkaline Phosphatase 53 U/L (38-126) Total Protein 7.0 g/dL (6.3-8.2) Albumin 4.3 g/dL (3.5-5.1) Lipase 53 U/L (23-300) Urine Color Yellow (Yellow) Urine Appearance Clear (Clear) Urine pH 5.5 (5.0-9.0) Ur Specific [place] 1.028 (1.001-1.035) Urine Protein Negative mg/dL (Negative) Urine Glucose (UA) Negative mg/dL (Negative) Urine Ketones Trace H mg/dL (Negative) Ur Blood (Man) Negative (Negative) Urine Nitrate Negative (Negative) Urine Bilirubin Negative (Negative) Urine Urobilinogen 0.2 mg/dL (<2.0) Leukocyte Esterase Rfl Negative MELISSA/UL (Negative) Blood Type O Positive Antibody Screen Negative 03/26/25 03:38 WBC 6.1 K/mm3 (4.5-10.0) RBC 3.21 L M/mm3 (4.6-6.20) Hgb 9.7 L g/dL (14.0-18.0) Hct 29.0 L % (42.0-52.0) MCV 90.3 fl (80-100) MCH 30.2 pg (26-34) MCHC 33.4 g/dl (32-36) RDW 12.2 % (11.5-14.5) Plt Count 255 k/mm3 (150-375) MPV 9.6 fl (7.4-10.4) Immature Gran % (Auto) 0.2 % (0-0.5) Neut % (Auto) 51.6 % (45.5-73.1) Lymph % (Auto) 42.6 % (18.3-44.2) [place] % (Auto) 4.5 % (2.6-8.5) Eos % (Auto) 0.3 % (0-4.4) Baso % (Auto) 0.8 % (0.2-1.2) Lymph # (Auto) 2.58 K/mm3 (0.9-3.2) [place] # (Auto) 0.3 K/mm3 (0.1-0.6) Eos # (Auto) 0.0 K/mm3 (0-0.3) Baso # (Auto) 0.1 K/mm3 (0.0-0.1) Abs Immat Gran (auto) 0.01 K/mm3 (0.00-0.031) Absolute Neuts (auto) 3.1 K/mm3 (1.3-6.7) Absolute Nucleated RBC 0.000 K/mm3 (0.0-0.012) Nucleated RBC % 0.0 % (0.0-0.2) Sodium 139 mmol/L (137-145) Potassium 4.3 mmol/L (3.4-5.0) Chloride 107 mmol/L (98-107) Carbon Dioxide 26 mmol/L (22-30) Anion Gap 6 mmol/L (4-12) BUN 11 D mg/dL (9-20) Creatinine 0.71 mg/dL (0.7-1.3) Estim Creat Clear Calc 137 ml/min Estimated GFR > 60 (59 - ) Glucose 90 mg/dL (65-110) Calcium 8.8 mg/dL (8.4-10.2) Total Bilirubin 0.3 mg/dL (0.2-1.3) AST 23 U/L (17-59) ALT 23 U/L (6-50) Alkaline Phosphatase 48 U/L (38-126) Total Protein 5.9 L g/dL (6.3-8.2) Albumin 3.7 g/dL (3.5-5.1) Lipase Urine Color Urine Appearance Urine pH Ur Specific [place] Urine Protein Urine Glucose (UA) Urine Ketones Ur Blood (Man) Urine Nitrate Urine Bilirubin Urine Urobilinogen Leukocyte Esterase Rfl Blood Type Antibody Screen Patient hx anesthesia problems: none Family hx anesthesia problems: none Results Review: All pre-operative results and documents have been reviewed as part of the pre-operative evaluation. [facility] Past Medical History Medical History Depression ADHD (attention deficit hyperactivity disorder) Vitamin D deficiency PTSD (post-traumatic stress disorder) Headache Social History Social History Years smoked: 9 Smoking status: Current some day smoker Tobacco type: e-cigarettes/vaping Alcohol intake: former Alcohol use details: 3-4 drinks per year Substance use: never Substance use type: does not use Do You Feel Safe in your Home?: Yes Lack of Transportation: No Lack of Food: Never True Current Housing: Decline to Answer Concerned About Future Housing: Decline to Answer Difficulty Paying Gas/Electric Bills: Decline to Answer Difficulty Paying for Meds: Decline to Answer Currently Unemployed: Decline to Answer Education: Decline to Answer Difficulty w/ Childcare or Family Care: Decline to Answer Spiritual care concerns: No Anes - Eval Final PreProcedure Day of Procedure 03/26/25 10:55 Patient weight: normal Heart: regular rate and rhythm Lungs: clear to auscultation Airway: Mallampati scale class II Neurological: alert and oriented Last oral intake: >/= 8 hours ASA classification: III Emergent: no Anesthetic plan: proceed Anesthesia type and monitoring: general GIVS and standard monitoring Results Review: All pre-operative results and documents have been reviewed as part of the pre-operative evaluation. Informed Consent: The patient's anesthetic plan and its attendant risks and benefits were discussed with the patient/family/POA. Questions were solicited and answers provided to the satisfaction of the patient/family/POA.
[2025-03-26] MEDS: LACTATED RINGERS 1,000 ML 150 ML IV CONT (10:58)
--- NOTE | 2025-03-26 11:12 | WPDGIPROGNO ---
Progress Note: A&P Assessment and Plan (1) Tonya-Urbina tear: Code(s): K22.6 - Gastro-esophageal laceration-hemorrhage syndrome Status: Acute Assessment and Plan: See EGD report. Tonya-Urbina tear already healing. No need for further medication, will recommend full liquid diet for 24 more hours. Patient can be safely discharged home. Subjective Date/time seen: 03/26/25 11:12 Objective Data Vital Signs Vital Signs: Vital Signs - 24 hr 03/25/25 14:28 03/25/25 15:01 03/25/25 16:00 Temperature 97.7 F 97.8 F Pulse Rate 87 91 99 Respiratory Rate 16 20 Blood Pressure 118/70 112/77 Pulse Oximetry 97 100 Oxygen Delivery 03/25/25 16:00 03/25/25 18:00 03/25/25 20:00 Temperature 97.8 F Pulse Rate 109 H 89 Respiratory Rate 16 Blood Pressure 107/69 Pulse Oximetry 100 Oxygen Delivery Room Air 03/25/25 20:00 03/25/25 20:00 03/25/25 21:20 Temperature Pulse Rate 96 Respiratory Rate Blood Pressure Pulse Oximetry 99 Oxygen Delivery Room Air Room Air 03/25/25 22:00 03/25/25 23:49 03/26/25 00:00 Temperature 97.8 F Pulse Rate 81 86 Respiratory Rate 16 Blood Pressure 90/56 L Pulse Oximetry 98 Oxygen Delivery Room Air 03/26/25 00:00 03/26/25 02:00 03/26/25 02:14 Temperature Pulse Rate 76 75 Respiratory Rate Blood Pressure 108/45 L Pulse Oximetry Oxygen Delivery 03/26/25 03:48 03/26/25 04:00 03/26/25 04:00 Temperature 98.1 F Pulse Rate 87 80 Respiratory Rate 16 Blood Pressure 99/53 L Pulse Oximetry 95 Oxygen Delivery Room Air 03/26/25 06:00 03/26/25 08:00 03/26/25 08:00 Temperature 98.2 F Pulse Rate 85 79 71 Respiratory Rate 18 Blood Pressure 99/49 L Pulse Oximetry 96 Oxygen Delivery 03/26/25 10:00 03/26/25 10:57 Temperature 98.5 F Pulse Rate 78 78 Respiratory Rate 16 Blood Pressure 111/66 Pulse Oximetry 100 Oxygen Delivery Room Air Intake/Output Intake/Output: Intake & Output 07/04/03/24/25 03/25/25 03/26/25 23:59 23:59 23:59 23:59 Intake Total 3200 1572 Balance 3200 1572 Meds/Results Medications: Active Medications Generic Name Dose Route Start Last Admin Trade Name Freq PRN Reason Stop Dose Admin Acetaminophen 650 mg 03/25/25 14:20 03/25/25 20:28 Acetaminophen 325 Mg Tablet PO 650 mg Q4H PRN Administration Mild Pain (1-3) or Fever Lactated Ringer's 1,000 mls @ 125 mls/hr 03/25/25 12:50 03/26/25 08:24 Lr - Lactated Ringers Iv IV CONT 125 mls/hr .Q8H BAIRON Administration Lactated Ringer's 1,000 mls @ 150 mls/hr 03/26/25 10:55 03/26/25 11:06 Lr - Lactated Ringers Iv IV CONT 150 mls/hr .Q6H40M BAIRON Infusion Ondansetron HCl 4 mg 03/25/25 14:20 Ondansetron Hcl Odt 4 Mg Tablet PO Q6H PRN Nausea And Vomiting Radiology Results: ITS Impressions Abdomen/Pelvis CT 03/25/25 13:09 IMPRESSION: 7 mm nonobstructing right renal stone. Rectosigmoid diverticulosis without surrounding inflammatory change. Labs Labs: Laboratory Results - last 24 hr 03/25/25 03/25/25 03/25/25 11:44 13:01 19:59 WBC 5.8 RBC 3.68 L Hgb 11.0 L 9.3 L 9.6 L Hct 32.5 L 27.8 L 28.8 L MCV 88.3 MCH 29.9 MCHC 33.8 RDW 12.2 Plt Count 279 MPV 9.3 Immature Gran % (Auto) 0.2 Neut % (Auto) 54.6 Lymph % (Auto) 35.4 [place] % (Auto) 8.3 Eos % (Auto) 0.5 Baso % (Auto) 1.0 Lymph # (Auto) 2.05 [place] # (Auto) 0.5 Eos # (Auto) 0.0 Baso # (Auto) 0.1 Abs Immat Gran (auto) 0.01 Absolute Neuts (auto) 3.2 Absolute Nucleated RBC 0.000 Nucleated RBC % 0.0 Sodium 138 Potassium 4.2 Chloride 106 Carbon Dioxide 25 Anion Gap 7 BUN 20 Creatinine 0.76 Estim Creat Clear Calc 128 Estimated GFR > 60 Glucose 84 Calcium 9.0 Total Bilirubin 0.2 AST 23 ALT 20 Alkaline Phosphatase 53 Total Protein 7.0 Albumin 4.3 Lipase 53 Urine Color Yellow Urine Appearance Clear Urine pH 5.5 Ur Specific [place] 1.028 Urine Protein Negative Urine Glucose (UA) Negative Urine Ketones Trace H Ur Blood (Man) Negative Urine Nitrate Negative Urine Bilirubin Negative Urine Urobilinogen 0.2 Leukocyte Esterase Rfl Negative Blood Type O Positive Antibody Screen Negative 03/26/25 03:38 WBC 6.1 RBC 3.21 L Hgb 9.7 L Hct 29.0 L MCV 90.3 MCH 30.2 MCHC 33.4 RDW 12.2 Plt Count 255 MPV 9.6 Immature Gran % (Auto) 0.2 Neut % (Auto) 51.6 Lymph % (Auto) 42.6 [place] % (Auto) 4.5 Eos % (Auto) 0.3 Baso % (Auto) 0.8 Lymph # (Auto) 2.58 [place] # (Auto) 0.3 Eos # (Auto) 0.0 Baso # (Auto) 0.1 Abs Immat Gran (auto) 0.01 Absolute Neuts (auto) 3.1 Absolute Nucleated RBC 0.000 Nucleated RBC % 0.0 Sodium 139 Potassium 4.3 Chloride 107 Carbon Dioxide 26 Anion Gap 6 BUN 11 D Creatinine 0.71 Estim Creat Clear Calc 137 Estimated GFR > 60 Glucose 90 Calcium 8.8 Total Bilirubin 0.3 AST 23 ALT 23 Alkaline Phosphatase 48 Total Protein 5.9 L Albumin 3.7 Lipase Urine Color Urine Appearance Urine pH Ur Specific [place] Urine Protein Urine Glucose (UA) Urine Ketones Ur Blood (Man) Urine Nitrate Urine Bilirubin Urine Urobilinogen Leukocyte Esterase Rfl Blood Type Antibody Screen
[2025-03-26] MEDS: ACETAMINOPHEN 325 MG TABLET 650 MG PO (14:02)
--- NOTE | 2025-03-26 15:32 | PM.DS ---
DS: Admitting Diagnosis Discharge Date 03/26/25 Admitting Diagnosis Abdominal pain DS: Discharge Diagnosis Discharge Diagnosis (1) Acute upper GI bleed: Code(s): K92.2 - Gastrointestinal hemorrhage, unspecified Status: Acute (2) Tonya-Urbina tear: Code(s): K22.6 - Gastro-esophageal laceration-hemorrhage syndrome Status: Acute (3) ADHD (attention deficit hyperactivity disorder): Code(s): F90.9 - Attention-deficit hyperactivity disorder, unspecified type Status: Acute DS: Summary Hospital Course Reason for hospitalization: 29yo male with ADHD, vitamin D deficiency, and PTSD presents here with abdominal pain and change in stool. Please see H&P for details. Hospital Course: Vital signs stable on admission. Hgb 11 but otherwise labs were within normal limits. Last Hgb was [address] abd/pelvis showing a 7mm nonobstructing right renal stone and rectosigmoid diverticulosis without inflammatory changes. GI was consulted. Serial Hgb did drop to 9.7. EGD performed showed a moderate Tonya-Urbina tear at the GE junction that was not bleeding and had an overlying organized clot. Patient was started on an liquid diet and tolerated this without issue. He was made aware of these findings. He overall did well and was able to be discharged home on 03/26/25. Status at Discharge Cognitive/behavioral status at discharge: stable Time Spent with Patient Time attestation: Total time spent providing and/or coordinating discharge services: 35 minutes Time spent: Greater than 30 minutes Exam Narrative: AF 98.1 119/61 84 16 96% ra Gen - NARD Chest - CTA bilaterally, nml RR CV - RRR S1/S2. Tele showing no significant dysrhythmias Abd - Soft, NT/ND, Positive BS Ext - No pedal edema Psych - Nml mood and affect Skin - Warm and dry DS: Data Data Completed and Pending Labs on day of discharge: Labs from last 24 hours 03/26/25 03/25/25 03:38 19:59 WBC 6.1 RBC 3.21 L Hgb 9.7 L 9.6 L Hct 29.0 L 28.8 L MCV 90.3 MCH 30.2 MCHC 33.4 RDW 12.2 Plt Count 255 MPV 9.6 Immature Gran % (Auto) 0.2 Neut % (Auto) 51.6 Lymph % (Auto) 42.6 [place] % (Auto) 4.5 Eos % (Auto) 0.3 Baso % (Auto) 0.8 Lymph # (Auto) 2.58 [place] # (Auto) 0.3 Eos # (Auto) 0.0 Baso # (Auto) 0.1 Abs Immat Gran (auto) 0.01 Absolute Neuts (auto) 3.1 Absolute Nucleated RBC 0.000 Nucleated RBC % 0.0 Sodium 139 Potassium 4.3 Chloride 107 Carbon Dioxide 26 Anion Gap 6 BUN 11 D Creatinine 0.71 Estim Creat Clear Calc 137 Estimated GFR > 60 Glucose 90 Calcium 8.8 Total Bilirubin 0.3 AST 23 ALT 23 Alkaline Phosphatase 48 Total Protein 5.9 L Albumin 3.7 Discharge Plan Discharge Attending physician on discharge: Umer Lentz Discharging Clinician: Umer Lentz Anticipated Discharge Date/Time: 03/26/25 15:39 Patient Disposition: Home Activity: as tolerated Diet: other - see discharge instructions Discharge Instructions: Liquid diet for 24 hours then can advance to regular diet. Contact your doctor or call 911 and come to the Emergency Room if you have persistent dark stools, lightheadedness with standing or other worrisome symptoms. Avoid NSAIDs (ibuprofen, naproxen, Aleve). Tylenol is safe to take. Follow-up with your primary care provider in 1-2 weeks. Please call for appointment. Thank you for using [facility] for your health care needs. Patient Instructions: Antibiotic Form Patient Language: Palestinian Stand Alone Forms: General Discharge Information Follow-up/Referrals: Toni Francisco MD [Primary Care Provider] - Call for Appointment Discharge Medications: No Action dextroamphetamine-amphetamine [Adderall XR] 20 mg capsule,extended release 24hr 20 mg PO QAM Qty: 30 0RF Rx Instructions: Take in Addition to the 20 mg tablet. dextroamphetamine-amphetamine 20 mg tablet 20 mg PO DAILY Qty: 30 0RF Rx Instructions: Take in Addition to the 20 mg extended release tablet. Date of admission: 03/25/25 13:41 Primary Care Provider: Toni Francisco Admitting Provider: Umer Lentz Attending physician on admission: Umer Lentz Condition: Stable Hospitalist MIPS Heart Failure (Exclusion) Patient has history of Heart Transplant or Left Ventricular Assistive Device?: No IF YES, STOP HERE Heart Failure (Qualifier) Patient has current or prior documentation of LVEF less than or equal to 40%, or mod/servere depressed LVSF?: No IF NO, STOP HERE
== END 2025-03-26 16:04 | disposition home or self-care (01) ==
LOC: ANHED 12:50 → ANHIMU 14:24
PROVIDERS: Internal Medicine Gastroenterology; Student in an Organized Health Care Education/Training Program; Admitting Provider Internal Medicine; Emergency Provider Emergency Medicine; PCP Emergency Medicine; Visit Provider Internal Medicine
PROC: 0DJ08ZZ Inspection of Upper Intestinal Tract, Via Natural or Artificial Opening Endoscopic (ICD-10-PCS; CPT 43235; principal; 2025-03-26 15:15)
DX: K92.1 Melena (principal); K22.6 Gastro-esophageal laceration-hemorrhage syndrome; F90.9 Attention-deficit hyperactivity disorder, unspecified type; F43.10 Post-traumatic stress disorder, unspecified; E55.9 Vitamin D deficiency, unspecified; F17.290 Nicotine dependence, other tobacco product, uncomplicated; Z79.899 Other long term (current) drug therapy
CPT/HCPCS: 43235; 36415; 74177; 80053; 81003; 83690; 85014; 85018; 85025; 86850; 86900; 86901; 96361; 96374; 96376; 99285; A9270; G0378; J2003; J2470; J2704; J7120; Q9967